=== PATIENT | male | born 1955 | race Caucasian/White ===

== ENCOUNTER 2017-02-08 18:15 | Emergency (ER) | payer OTHER ==
--- NOTE | 2017-02-08 18:26 | EDPHY ---
H & P Time Seen by Provider: 02/08/17 18:16 HPI/ROS: CHIEF COMPLAINT: Altered mental status Limitations: The patient is nonverbal and unable to provide any clinical history. HISTORY OF PRESENT ILLNESS: The patient is a 62 y/o male arriving via EMS after [facility] noticed respiratory distress and altered mental status. The staff at [facility] believe he has been unable to answer basic questions that he normally would be able to answer. He has been known to leave the [facility] and use recreational drugs. They believed this happened today. EMS reports he has intermittent heavy respiratory breathing. The patient cannot remember what he did earlier today. Denies alcohol or drug use today, pain. REVIEW OF SYSTEMS: unable to determine well pt nods to yes/no questioning; answers no to ROS questions. Past Medical/Surgical History: Schizophrenia, anxiety Social History: Homeless or stays at [facility], recreational drug use Physical Exam: General Appearance: Nonverbal, alert, no distress Eyes: Pupils equal and round, no conjunctival pallor or injection ENT, Mouth: Mucous membranes moist Neck: Normal inspection Respiratory: Normal respiratory rate, Rales at bases of lungs Cardiovascular: Regular rate and rhythm Gastrointestinal: Abdomen is soft and non- tender Neurological: A&Ox3, normal motor function, normal sensory exam, cranial nerves intact Skin: Warm and dry, no rash Extremities: Nontender, no pedal edema Psychiatric: Mood and affect normal Constitutional: Initial Vital Signs Temperature (C) 36.7 C 02/08/17 18:24 Heart Rate 88 02/08/17 18:24 Respiratory Rate 15 02/08/17 18:24 Blood Pressure 134/93 H 02/08/17 18:24 O2 Sat (%) 93 02/08/17 18:24 O2 Delivery Mode Room Air Allergies/Adverse Reactions: No Known Allergies Allergy (Unverified 02/08/17 18:21) Home Medications: Medication Instructions Recorded GABAPENTIN 02/08/17 Risperidone 02/08/17 Theragran-M Premier Caplet 02/08/17 Tylenol 02/08/17 traZODone 02/08/17 Medical Decision Making - Diagnostics EKG Interpretation: EKG interpreted by me reveals normal sinus rhythm with rate of 78, normal axis, normal intervals, ST and T segments normal. Interpretation: normal EKG Imaging Results: Imaging Impressions Chest X-Ray 02/08/17 18:23 Impression: Hypoventilation and bibasilar atelectasis. Imaging: Discussed imaging studies w/ call center agent Radiologist, I viewed and interpreted images myself ED Course/Re-evaluation: The patient is a 62 y/o male arriving via EMS from [facility] for altered mental status and respiratory distress. He is currently nonverbal, but can follow commands and nods his head to yes or no questioning. He has a history of recreational drug use, which the staff at [facility] believed he did today. Chest x-ray: Hypoventilation and bibasilar atelectasis. 1924: His nurse reports that the patient is still nonverbal. 1958: Reassessed patient, he is mumbling, but answering some questions. Clearly understands what I am saying. On exam there are no acute findings. He will be discharged back to [facility]. Return precautions discussed; patient is comfortable with this plan. Differential Diagnosis: Altered mental status including but not limited to pneumonia, hypoxia, hypoglycemia, infectious process, electrolyte abnormality, head injury and intoxicants. - Data Points Laboratory Results: Laboratory Results 02/08/17 18:30 02/08/17 18:30 02/08/17 02/08/17 02/08/17 20:50 18:30 18:30 WBC 7.83 10^3/uL 10^3/uL (3.80-9.50) RBC 5.08 10^6/uL 10^6/uL (4.40-6.38) Hgb 16.4 g/dL g/dL (13.7-17.5) Hct 46.9 % % (40.0-51.0) MCV 92.3 fL fL (81.5-99.8) MCH 32.3 pg pg (27.9-34.1) MCHC 35.0 g/dL g/dL (32.4-36.7) RDW 13.1 % % (11.5-15.2) Plt Count 288 10^3/uL 10^3/uL (150-400) MPV 9.7 fL fL (8.7-11.7) Neut % (Auto) 64.3 % % (39.3-74.2) Lymph % (Auto) 22.6 % % (15.0-45.0) [place] % (Auto) 10.6 % % (4.5-13.0) Eos % (Auto) 1.1 % % (0.6-7.6) Baso % (Auto) 0.9 % % (0.3-1.7) Nucleat RBC Rel Count 0.0 % % (0.0-0.2) Absolute Neuts (auto) 5.03 10^3/uL 10^3/uL (1.70-6.50) Absolute Lymphs (auto) 1.77 10^3/uL 10^3/uL (1.00-3.00) Absolute Monos (auto) 0.83 10^3/uL H 10^3/uL (0.30-0.80) Absolute Eos (auto) 0.09 10^3/uL 10^3/uL (0.03-0.40) Absolute Basos (auto) 0.07 10^3/uL 10^3/uL (0.02-0.10) Absolute Nucleated RBC 0.00 10^3/uL 10^3/uL (0-0.01) Immature Gran % 0.5 % % (0.0-1.1) Immature Gran # 0.04 10^3/uL 10^3/uL (0.00-0.10) Sodium 138 mEq/L mEq/L (134-144) Potassium 4.6 mEq/L mEq/L (3.5-5.2) Chloride 100 mEq/L mEq/L (97-110) Carbon Dioxide 27 mEq/l mEq/l (22-31) Anion Gap 11 mEq/L mEq/L (8-16) BUN 11 mg/dL mg/dL (7-23) Creatinine 0.9 mg/dL mg/dL (0.7-1.3) Estimated GFR > 60 Glucose 90 mg/dL mg/dL (70-100) Calcium 10.1 mg/dL mg/dL (8.5-10.4) Urine Opiates Screen Pending Urine Barbiturates Pending Ur Phencyclidine Scrn Pending Ur Amphetamine Screen Pending U Benzodiazepines Scrn Pending Urine Cocaine Screen Pending U Marijuana (THC) Screen Pending Ethyl Alcohol < 10 mg/dL mg/dL (0-10) Medications Given: Discontinued Medications Sodium Chloride (Ns) 1,000 mls @ 0 mls/hr IV ONCE ONE; Wide Open PRN Reason: Protocol Stop: 02/08/17 19:27 Last Admin: 02/08/17 19:28 Dose: 1,000 mls Departure - Departure Disposition: Home, Routine, Self-Care Clinical Impression: Nonverbal Schizophrenia Qualifiers: Schizophrenia type: paranoid schizophrenia Qualified Code(s): F20.0 - Paranoid schizophrenia Condition: Good Instructions: Additional Information, Schizophrenia (ED) Additional Instructions: Follow-up with your primary doctor within 72 hours. Return to the Emergency Department for fever, chest pain, shortness of breath, increasing pain or other worsening of condition. Referrals: [facility],. [Clinic] - As per Instructions Report Scribed for: Sydney Lanier Report Scribed by: Georgina Leonard Date of Report: 02/08/17 Time of Report: 18:18 Physician Review and Approval Statement: 02/08/17 18:18 Portions of this note were transcribed by a medical sales specialist. I personally performed a history, physical exam, medical decision making, and confirmed accuracy of information the transcribed note.
[2017-02-08 18:36] LABS: % IMMATURE GRANULYOCYTES 0.5 % (0.0-1.1); ABSOLUTE IMMATURE GRANULOCYTES 0.04 10^3/uL (0.00-0.10); ADD DIFF? NO; ADD MORPH? NO; ADD SCAN? NO; ATYPICAL LYMPHOCYTE FLAG 10 (0-99); FRAGMENT RBC FLAG 0 (0-99); HEMATOCRIT 46.9 % (40.0-51.0); HEMOGLOBIN 16.4 g/dL (13.7-17.5); LEFT SHIFT FLG 0 (0-99); LIPEMIA HEMOLYSIS FLAG 90 (0-99); MEAN CELL HEMOGLOBIN 32.3 pg (27.9-34.1); MEAN CELL VOLUME 92.3 fL (81.5-99.8); MEAN PLATELET VOLUME 9.7 fL (8.7-11.7); PLATELET CLUMPS FLAG 10 (0-99); PLATELET COUNT 288 10^3/uL (150-400); RED BLOOD CELL COUNT 5.08 10^6/uL (4.40-6.38); RED CELL DISTRIBUTION WIDTH 13.1 % (11.5-15.2)
[2017-02-08 18:53] LABS: ANION GAP 11 mEq/L (8-16); CALCIUM 10.1 mg/dL (8.5-10.4); CARBON DIOXIDE 27 mEq/l (22-31); CHLORIDE 100 mEq/L (97-110); CREATININE 0.9 mg/dL (0.7-1.3); ETHANOL SERUM < 10 mg/dL (0-10); GLOMERULAR FILTRATION RATE > 60; GLUCOSE 90 mg/dL (70-100); POTASSIUM 4.6 mEq/L (3.5-5.2); SODIUM 138 mEq/L (134-144)
[2017-02-08] MEDS ORDERED: NS 1,000 ML IV ONE (19:26)
--- NOTE | 2017-02-08 19:33 | CPEKG ---
Heart Rate: 78 RR Interval: 769 P-R Interval: 204 QRSD Interval: 88 QT Interval: 392 QTC Interval: 447 P [place]: 17 QRS [place]: -11 T Wave [place]: 33 EKG Severity - NORMAL ECG - EKG Impression: SINUS RHYTHM Electronically Signed By: Sydney Lanier 08-Feb-2017 21:15:23
[2017-02-08 20:04] VITALS: O2SAT 96
[2017-02-08 20:55] VITALS: BP 141/83; PULSE 72; RESP 18; TEMP 98.8
== END 2017-02-08 21:45 | disposition home or self-care (01) ==
DX: R41.82 Altered mental status, unspecified (principal); F20.0 Paranoid schizophrenia; F80.9 Developmental disorder of speech and language, unspecified; E86.9 Volume depletion, unspecified
CPT/HCPCS: 80305; G0480

== ENCOUNTER 2017-03-09 15:30 | Emergency (ER) | payer OTHER, MEDICAID ==
--- NOTE | 2017-03-09 15:33 | EDPHY ---
HPI/HX/ROS/PE/MDM Narrative: CHIEF COMPLAINT: Incoherent HPI: The patient is a 62 y/o male arriving via EMS after being found incoherent at the [employer]. He was being treated at [facility] for cellulitis until he was released on February 12, almost a month ago. Today a local business called police to report he has been living in the parking lot. Police made contact but found he was incoherent. He has a history of hepatitis, illicit drug use, schizophrenia, and anxiety. He refuses to answer questions but did tell EMS his name. His vitals and blood sugar levels were checked by EMS and found to be normal. On my exam, patient unable to tell me year. He denies pain. HPI obtained primarily from EMS and past medical records including ED visit 02/08 due to patient's condition. REVIEW OF SYSTEMS: Unable to obtain. PMH: Hepatitis, illicit drug use, schizophrenia, anxiety SOCIAL HISTORY: Former [facility] patient, homeless, recreational drug user PHYSICAL EXAM: General:Patient is alert, in no acute distress. Patient disheveled, both legs covered in dried stool. ENT:Eyes are normal to inspection. ENT inspection normal. Neck: Normal inspection. Full range of motion. Respiratory:No respiratory distress. Breath sounds normal bilaterally. Cardiovascular: Regular rate and rhythm. Strong peripheral pulses. Normal cap refill. Abdomen:The abdomen is nontender to palpation. There are no peritoneal signs. There are normal bowel sounds. Back: Normal to inspection. No tenderness to palpation. Skin: Normal color. No rash. Warm and dry. Extremities: Normal appearance. Full range of motion. Neuro: No focal deficits. Pupils mid-position and reactive bilaterally. ED Course: 1619: I placed patient on a detainer due to his condition. 1701: Patient's blood work is coming back abnormal. He was a difficult draw. I am having labs redrawn to ensure accuracy. 2119: Inpatient psychiatric treatment has been secured. He will be transferred for admission. MDM: This patient presents with AMS and clear grave disability, likely related to substance abuse and schizophrenia. He has no focal exam findings to suggest head trauma or CVA. His labs are unremarkable. His is afebrile. I think he is medically clear and appropriate for psychiatric admission. - Data Points Laboratory Results: Laboratory Results 03/09/17 17:20 03/09/17 17:20 03/09/17 03/09/17 03/09/17 17:35 17:20 17:20 WBC 9.17 10^3/uL 10^3/uL (3.80-9.50) RBC 4.59 10^6/uL 10^6/uL (4.40-6.38) Hgb 15.5 g/dL g/dL (13.7-17.5) Hct 42.9 % % (40.0-51.0) MCV 93.5 fL fL (81.5-99.8) MCH 33.8 pg pg (27.9-34.1) MCHC 36.1 g/dL g/dL (32.4-36.7) RDW 13.3 % % (11.5-15.2) Plt Count 276 10^3/uL 10^3/uL (150-400) MPV 9.4 fL fL (8.7-11.7) Neut % (Auto) 73.3 % % (39.3-74.2) Lymph % (Auto) 18.5 % % (15.0-45.0) [place] % (Auto) 6.2 % % (4.5-13.0) Eos % (Auto) 0.8 % % (0.6-7.6) Baso % (Auto) 0.8 % % (0.3-1.7) Nucleat RBC Rel Count 0.0 % % (0.0-0.2) Absolute Neuts (auto) 6.72 10^3/uL H 10^3/uL (1.70-6.50) Absolute Lymphs (auto) 1.70 10^3/uL 10^3/uL (1.00-3.00) Absolute Monos (auto) 0.57 10^3/uL 10^3/uL (0.30-0.80) Absolute Eos (auto) 0.07 10^3/uL 10^3/uL (0.03-0.40) Absolute Basos (auto) 0.07 10^3/uL 10^3/uL (0.02-0.10) Absolute Nucleated RBC 0.00 10^3/uL 10^3/uL (0-0.01) Immature Gran % 0.4 % % (0.0-1.1) Immature Gran # 0.04 10^3/uL 10^3/uL (0.00-0.10) Sodium 138 mEq/L mEq/L (134-144) Potassium 4.2 mEq/L mEq/L (3.5-5.2) Chloride 104 mEq/L mEq/L (97-110) Carbon Dioxide 25 mEq/l mEq/l (22-31) Anion Gap 9 mEq/L mEq/L (8-16) BUN 7 mg/dL mg/dL (7-23) Creatinine 0.8 mg/dL mg/dL (0.7-1.3) Estimated GFR > 60 Glucose 86 mg/dL mg/dL (70-100) Calcium 8.8 mg/dL mg/dL (8.5-10.4) Urine Opiates Screen NEGATIVE (NEGATIVE) Urine Barbiturates NEGATIVE (NEGATIVE) Ur Phencyclidine Scrn NEGATIVE (NEGATIVE) Ur Amphetamine Screen NEGATIVE (NEGATIVE) U Benzodiazepines Scrn NEGATIVE (NEGATIVE) Urine Cocaine Screen NEGATIVE (NEGATIVE) U Marijuana (THC) Screen NON-NEGATIVE H (NEGATIVE) 03/09/17 03/09/17 03/09/17 17:20 16:15 16:15 WBC REJ RBC CAKE PRESS OPERATOR Hgb CAKE PRESS OPERATOR Hct CAKE PRESS OPERATOR MCV CAKE PRESS OPERATOR MCH CAKE PRESS OPERATOR MCHC CAKE PRESS OPERATOR RDW CAKE PRESS OPERATOR Plt Count CAKE PRESS OPERATOR MPV CAKE PRESS OPERATOR Neut % (Auto) CAKE PRESS OPERATOR Lymph % (Auto) CAKE PRESS OPERATOR [place] % (Auto) CAKE PRESS OPERATOR Eos % (Auto) CAKE PRESS OPERATOR Baso % (Auto) CAKE PRESS OPERATOR Nucleat RBC Rel Count CAKE PRESS OPERATOR Absolute Neuts (auto) CAKE PRESS OPERATOR Absolute Lymphs (auto) CAKE PRESS OPERATOR Absolute Monos (auto) CAKE PRESS OPERATOR Absolute Eos (auto) CAKE PRESS OPERATOR Absolute Basos (auto) CAKE PRESS OPERATOR Absolute Nucleated RBC CAKE PRESS OPERATOR Immature Gran % CAKE PRESS OPERATOR Immature Gran # CAKE PRESS OPERATOR Sodium REJ Potassium CAKE PRESS OPERATOR Chloride CAKE PRESS OPERATOR Carbon Dioxide CAKE PRESS OPERATOR Anion Gap CAKE PRESS OPERATOR BUN CAKE PRESS OPERATOR Creatinine CAKE PRESS OPERATOR Estimated GFR CAKE PRESS OPERATOR Glucose CAKE PRESS OPERATOR Calcium CAKE PRESS OPERATOR Urine Opiates Screen TNP Urine Barbiturates TNP Ur Phencyclidine Scrn TNP Ur Amphetamine Screen TNP U Benzodiazepines Scrn TNP Urine Cocaine Screen TNP U Marijuana (THC) Screen TNP General Time Seen by Provider: 03/09/17 15:31 Initial Vital Signs: Initial Vital Signs Temperature (C) 36.7 C 03/09/17 15:38 Heart Rate 83 03/09/17 15:38 Respiratory Rate 15 03/09/17 15:38 Blood Pressure 131/82 H 03/09/17 15:38 O2 Sat (%) 96 03/09/17 15:38 O2 Delivery Mode Room Air Allergies/Adverse Reactions: No Known Allergies Allergy (Unverified 02/08/17 18:21) Home Medications: Medication Instructions Recorded GABAPENTIN 02/08/17 Risperidone 02/08/17 Theragran-M Premier Caplet 02/08/17 Tylenol 02/08/17 traZODone 02/08/17 Departure - Departure Disposition: Other Psych, Not [place] Clinical Impression: Gravely disabled, Schizophrenia Condition: Fair Referrals: Patient,NotPresent [Unknown] - As per Instructions Report Scribed for: [address] Report Scribed by: Mariann Poe Date of Report: 03/09/17 Time of Report: 15:34 Physician Review and Approval Statement: Portions of this note were transcribed by an ED scribe. I personally performed the history, physical exam, and medical decision making; and confirm the accuracy of the information in the transcribed note.
[2017-03-09 16:24] LABS: ATYPICAL LYMPHOCYTE FLAG 20 (0-99); FRAGMENT RBC FLAG 0 (0-99); LEFT SHIFT FLG 0 (0-99); LIPEMIA HEMOLYSIS FLAG 90 (0-99); PLATELET CLUMPS FLAG 0 (0-99)
--- NOTE | 2017-03-09 16:27 | ASMTCMCOM ---
CM Note CM Note Notes: Ck is a resident of [facility]. Found confused and covered in stool wondering around the shopping [place] the street from [facility]. [facility]. Rebecca at [facility] is looking into it. She can be reached at [phone]. Date Signed: 03/09/2017 04:26 PM Electronically Signed By:Kirsten Dillon RN
--- NOTE | 2017-03-09 17:21 | ASMTCMCOM ---
CM Note CM Note Notes: Update from Rebecca: patient walked away from [facility] one month ago and they considered that an AMA discharge. Therefore, this patient is homeless. Date Signed: 03/09/2017 05:20 PM Electronically Signed By:Kirsten Dillon RN
--- NOTE | 2017-03-09 17:28 | ASMTCMCOM ---
CM Note CM Note Notes: Psych consult with Dr. Hammer for possible avenues for this pt. [facility] contacted . Intake indicated the possibility to accept this pt. Limited medical records. Due to the pt's limited ability to respond to questions an 8page TLC evaluation was not possible. ED MD reported pt will be admitted for medical treatment. Please Fax records for acceptance to [facility] prior to medical release. [phone]. If [facility] is unable to accept the pt. Dr. Hammer indicated that e would help assess other options. DC TBD CM to follow. Date Signed: 03/09/2017 05:27 PM Electronically Signed By:Ramandeep Duke LCSW
[2017-03-09 17:36] LABS: % IMMATURE GRANULYOCYTES 0.4 % (0.0-1.1); ABSOLUTE IMMATURE GRANULOCYTES 0.04 10^3/uL (0.00-0.10); ADD DIFF? NO; ADD MORPH? NO; ADD SCAN? NO; ATYPICAL LYMPHOCYTE FLAG 0 (0-99); FRAGMENT RBC FLAG 0 (0-99); HEMATOCRIT 42.9 % (40.0-51.0); HEMOGLOBIN 15.5 g/dL (13.7-17.5); LEFT SHIFT FLG 0 (0-99); LIPEMIA HEMOLYSIS FLAG 90 (0-99); MEAN CELL HEMOGLOBIN 33.8 pg (27.9-34.1); MEAN CELL HEMOGLOBIN CONCENTR. 36.1 g/dL (32.4-36.7); MEAN CELL VOLUME 93.5 fL (81.5-99.8); MEAN PLATELET VOLUME 9.4 fL (8.7-11.7); PLATELET CLUMPS FLAG 10 (0-99); PLATELET COUNT 276 10^3/uL (150-400); RED BLOOD CELL COUNT 4.59 10^6/uL (4.40-6.38); RED CELL DISTRIBUTION WIDTH 13.3 % (11.5-15.2)
[2017-03-09 17:46] LABS: CALCIUM 8.8 mg/dL (8.5-10.4); CARBON DIOXIDE 25 mEq/l (22-31); CREATININE 0.8 mg/dL (0.7-1.3); GLOMERULAR FILTRATION RATE > 60; GLUCOSE 86 mg/dL (70-100); POTASSIUM 4.2 mEq/L (3.5-5.2); SODIUM 138 mEq/L (134-144)
[2017-03-09 18:28] LABS: ANION GAP 9 mEq/L (8-16); CHLORIDE 104 mEq/L (97-110)
--- NOTE | 2017-03-09 19:07 | CPEKG ---
Heart Rate: 68 RR Interval: 882 P-R Interval: 168 QRSD Interval: 90 QT Interval: 456 QTC Interval: 486 P [place]: 52 QRS [place]: 18 T Wave [place]: -42 EKG Severity - BORDERLINE ECG - EKG Impression: SINUS RHYTHM EKG Impression: BORDERLINE T ABNORMALITIES, INFERIOR LEADS EKG Impression: BORDERLINE PROLONGED QT INTERVAL EKG Impression: No significant change from February 08, 2017, except for axis change. Electronically Signed By: Junior Recio 13-Mar-2017 11:07:06
[2017-03-09 19:27] VITALS: RESP 18; O2SAT 98
[2017-03-09 22:27] VITALS: BP 118/67; PULSE 66; TEMP 97.9
== END 2017-03-09 22:22 ==
LOC: EDUNIT#
DX: F20.9 Schizophrenia, unspecified (principal); F79 Unspecified intellectual disabilities; Z87.891 Personal history of nicotine dependence
CPT/HCPCS: 80305

== ENCOUNTER 2017-04-01 15:04 | Emergency (ER) | payer OTHER, MEDICAID ==
[~2017-04-01 15:04] MED LIST: AZITHROMYCIN 250 MG TAB PO SCH
[2017-04-01 15:16] VITALS: TEMP 97.7
--- NOTE | 2017-04-01 15:37 | EDPHY ---
H & P Stated Complaint: SOB, cough HPI/ROS: HPI CHIEF COMPLAINT: Shortness of breath, productive cough, bilateral foot pain HISTORY OF PRESENT ILLNESS: Patient is a very pleasant 62-year-old homeless gentleman history of hepatitis, illicit drug use, schizophrenia and tobacco abuse, denies any underlying lung or cardiac disease he presents to the emergency room by EMS for multitude of complaints but is main complaint is shortness of breath with a productive cough with white sputum. He denies blood. He denies chest pain. Denies fever. He states he has been short of breath for the past 3 days and continues to smoke. He reports that he has been wheezing. Additionally he reports that his feet both hurt him. Of note when he arrived by ambulance he has feet that her wet with skin sloughing. There is no gangrene. There is no tenderness or crepitus on exam. His vital signs are stable. He denies chest pain. Denies fever. Denies headache or neck pain. Main complaint bilateral feet pain, and cough with productive sputum white in nature. Past Medical History: Illicit drug use, hepatitis, schizophrenia Past Surgical History: No recent surgery but remote surgery of right great toe removal. Social History: Homeless, daily tobacco use, denies illicit drugs or alcohol. Family History: Noncontributory ROS REVIEW OF SYSTEMS: A comprehensive 10 point review of systems is otherwise negative aside from elements mentioned in the history of present illness. Exam Constitutional appears nontoxic, however disheveled, triage nursing summary reviewed, vital signs reviewed, awake/alert. Eyes normal conjunctivae and sclera, EOMI, PERRLA. HENT normal inspection, atraumatic, moist mucus membranes, no epistaxis, neck supple/ no meningismus, no raccoon eyes. Respiratory clear to auscultation bilaterally, normal breath sounds, no respiratory distress, no wheezing. Cardiovascular rate normal, regular rhythm, no murmur, no edema, distal pulses normal. Gastrointestinal soft, non-tender, no rebound, no guarding, normal bowel sounds, no distension, no pulsatile mass. Genitourinary no CVA tenderness. Musculoskeletal no midline vertebral tenderness, full range of motion, no calf swelling, no tenderness of extremities, no meningismus, good pulses, neurovascularly intact. Missing great right toe. Surgically absent. Skin blisters to both bottoms of his feet. No significant redness. No significant swelling. No crepitus. Neurologic awake, alert and oriented x 3, AAOx3, moves all 4 extremities equally, motor intact, sensory intact, CN II-XII intact, normal cerebellar, normal vision, normal speech. Psychiatric normal mood/affect. Heme/Lymph/Immune no lymphadenopathy. Differential Diagnosis: Includes but is not limited to in a particular order COPD exacerbation, pneumonia, CHF, pneumothorax, wet feet, fungal infection, blisters to feet Medical Decision Making: Plan for this patient DuoNeb breathing treatment, EKG , basic blood work, chest x-ray two view to rule pneumonia, and re-evaluate. Re-evaluation: 1618: X-ray reviewed two view by myself. I do not appreciate pneumonia. He does have hyperinflated lungs consistent with most likely underlying emphysema COPD. EKG interpretation by me on record in [employer] system. Impression time of EKG 1600, this is sinus rhythm rate of 76 PVCs present. I do not appreciate acute ischemia. 1620: I did re-evaluate this patient is feeling better after DuoNeb breathing treatment. Does bleed bilateral foot pain I have offered him ibuprofen. 1646: I did re-evaluate this patient this time is resting comfortably has no complaints. His blood sugars noted to be low in the 50s. Will feed him. Ambulate. Chest x-ray reviewed shows no pneumonia. Feeling better after DuoNeb breathing treatment. Will place on azithromycin albuterol outpatient for bronchitis/COPD. Highly recommend the patient that he stop smoking. He is homeless. Will try to provide him a way to get to his residential tonight. Return precautions given. 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, schizophrenia, osteomyelitis, chronic hepatitis, - Social History Smoking Status: Current every day smoker Constitutional: Initial Vital Signs Temperature (C) 36.5 C 04/01/17 15:14 Heart Rate 86 04/01/17 15:14 Respiratory Rate 18 04/01/17 15:14 Blood Pressure 123/78 H 04/01/17 15:14 O2 Sat (%) 96 04/01/17 15:14 O2 Delivery Mode Room Air Allergies/Adverse Reactions: No Known Allergies Allergy (Unverified 02/08/17 18:21) Home Medications: Medication Instructions Recorded GABAPENTIN 02/08/17 Risperidone 02/08/17 Theragran-M Premier Caplet 02/08/17 Tylenol 02/08/17 traZODone 02/08/17 Medical Decision Making - Diagnostics Imaging Results: Imaging Impressions Chest X-Ray 04/01/17 15:40 Impression: Nothing acute identified. Suspect underlying COPD. - Data Points Laboratory Results: Laboratory Results 04/01/17 15:12 04/01/17 15:12 04/01/17 04/01/17 15:12 15:12 WBC 7.01 10^3/uL 10^3/uL (3.80-9.50) RBC 4.92 10^6/uL 10^6/uL (4.40-6.38) Hgb 16.5 g/dL g/dL (13.7-17.5) Hct 45.8 % % (40.0-51.0) MCV 93.1 fL fL (81.5-99.8) MCH 33.5 pg pg (27.9-34.1) MCHC 36.0 g/dL g/dL (32.4-36.7) RDW 13.0 % % (11.5-15.2) Plt Count 362 10^3/uL 10^3/uL (150-400) MPV 9.7 fL fL (8.7-11.7) Neut % (Auto) 68.5 % % (39.3-74.2) Lymph % (Auto) 20.0 % % (15.0-45.0) [place] % (Auto) 9.7 % % (4.5-13.0) Eos % (Auto) 0.7 % % (0.6-7.6) Baso % (Auto) 1.0 % % (0.3-1.7) Nucleat RBC Rel Count 0.0 % % (0.0-0.2) Absolute Neuts (auto) 4.80 10^3/uL 10^3/uL (1.70-6.50) Absolute Lymphs (auto) 1.40 10^3/uL 10^3/uL (1.00-3.00) Absolute Monos (auto) 0.68 10^3/uL 10^3/uL (0.30-0.80) Absolute Eos (auto) 0.05 10^3/uL 10^3/uL (0.03-0.40) Absolute Basos (auto) 0.07 10^3/uL 10^3/uL (0.02-0.10) Absolute Nucleated RBC 0.00 10^3/uL 10^3/uL (0-0.01) Immature Gran % 0.1 % % (0.0-1.1) Immature Gran # 0.01 10^3/uL 10^3/uL (0.00-0.10) Sodium 142 mEq/L mEq/L (134-144) Potassium 3.7 mEq/L mEq/L (3.5-5.2) Chloride 101 mEq/L mEq/L (97-110) Carbon Dioxide 26 mEq/l mEq/l (22-31) Anion Gap 15 mEq/L mEq/L (8-16) BUN 8 mg/dL mg/dL (7-23) Creatinine 0.9 mg/dL mg/dL (0.7-1.3) Estimated GFR > 60 Glucose 52 mg/dL L mg/dL (70-100) Calcium 10.3 mg/dL mg/dL (8.5-10.4) Creatine Kinase 251 IU/L H IU/L (0-224) CK-MB (CK-2) Fraction 3.47 ng/mL H ng/mL (0.00-3.19) CK-MB (CK-2) % 1.4 % % (0.0-4.0) Creatine Kinase Interp NEGATIVE (NEGATIVE) Troponin I < 0.012 ng/mL ng/mL (0.000-0.034) NT-Pro-B Natriuret Pep 78 pg/mL pg/mL (0-125) Medications Given: Discontinued Medications Albuterol/Ipratropium (Duoneb) 3 ml IH EDNOW ONE Stop: 04/01/17 15:42 Last Admin: 04/01/17 16:00 Dose: 3 ml Sodium Chloride (Ns) 500 mls @ 0 mls/hr IV EDNOW ONE; Wide Open PRN Reason: Protocol Stop: 04/01/17 15:41 Last Admin: 04/01/17 16:00 Dose: 500 mls Ibuprofen (Motrin) 800 mg PO EDNOW ONE Stop: 04/01/17 16:21 Last Admin: 04/01/17 16:31 Dose: 800 mg Departure - Departure Disposition: Home, Routine, Self-Care Clinical Impression: Bronchitis Condition: Good Instructions: Acute Bronchitis (ED), COPD (Chronic Obstructive Pulmonary Disease) (ED) Additional Instructions: 1. Please stop smoking. 2. Return emergency room if you have worsening symptoms questions or concerns. 3. Take antibiotic as prescribed and albuterol as needed. Referrals: Patient,NotPresent [Unknown] - As per Instructions
[2017-04-01] MEDS ORDERED: NS 500 ML IV ONE (15:40)
[2017-04-01] MEDS ORDERED: IPRATROPIUM/ALBUTEROL 3 ML DEYVIAL IH ONE (15:41)
[2017-04-01 15:47] LABS: % IMMATURE GRANULYOCYTES 0.1 % (0.0-1.1); ABSOLUTE IMMATURE GRANULOCYTES 0.01 10^3/uL (0.00-0.10); ADD DIFF? NO; ADD MORPH? NO; ADD SCAN? NO; ATYPICAL LYMPHOCYTE FLAG 10 (0-99); FRAGMENT RBC FLAG 0 (0-99); HEMATOCRIT 45.8 % (40.0-51.0); HEMOGLOBIN 16.5 g/dL (13.7-17.5); LEFT SHIFT FLG 0 (0-99); LIPEMIA HEMOLYSIS FLAG 90 (0-99); MEAN CELL HEMOGLOBIN 33.5 pg (27.9-34.1); MEAN CELL VOLUME 93.1 fL (81.5-99.8); MEAN PLATELET VOLUME 9.7 fL (8.7-11.7); PLATELET CLUMPS FLAG 0 (0-99); PLATELET COUNT 362 10^3/uL (150-400); RED BLOOD CELL COUNT 4.92 10^6/uL (4.40-6.38)
[2017-04-01 16:01] LABS: ANION GAP 15 mEq/L (8-16); CALCIUM 10.3 mg/dL (8.5-10.4); CARBON DIOXIDE 26 mEq/l (22-31); CHLORIDE 101 mEq/L (97-110); CREATININE 0.9 mg/dL (0.7-1.3); GLOMERULAR FILTRATION RATE > 60; GLUCOSE 52 mg/dL (70-100); POTASSIUM 3.7 mEq/L (3.5-5.2); SODIUM 142 mEq/L (134-144)
--- NOTE | 2017-04-01 16:02 | CPEKG ---
Heart Rate: 76 RR Interval: 789 P-R Interval: 176 QRSD Interval: 92 QT Interval: 428 QTC Interval: 482 P [place]: 19 QRS [place]: 11 T Wave [place]: 56 EKG Severity - ABNORMAL ECG - EKG Impression: SINUS RHYTHM EKG Impression: MULTIPLE VENTRICULAR PREMATURE COMPLEXES EKG Impression: BORDERLINE PROLONGED QT INTERVAL Electronically Signed By: Meño Batista 01-Apr-2017 23:29:03
[2017-04-01 16:14] LABS: CK-MB INTERPRETATION NEGATIVE (NEGATIVE); TROPONIN I < 0.012 ng/mL (0.000-0.034)
[2017-04-01 16:15] LABS: CREATINE KINASE-MB FRACTION 3.47 ng/mL (0.00-3.19)
[2017-04-01] MEDS ORDERED: IBUPROFEN 800 MG TAB PO ONE (16:20)
[2017-04-01] MEDS ORDERED: AZITHROMYCIN 250 MG TAB PO ONE (16:48)
[2017-04-01] MEDS ORDERED: ALBUTEROL INH PREPACK MDI TAKEHOME ONE (16:48)
[2017-04-01 17:22] VITALS: BP 141/79; PULSE 81; RESP 16; O2SAT 94
== END 2017-04-01 17:24 | disposition home or self-care (01) ==
LOC: EDUNIT#
DX: J20.9 Acute bronchitis, unspecified (principal); E86.9 Volume depletion, unspecified; F17.200 Nicotine dependence, unspecified, uncomplicated

== ENCOUNTER 2017-04-03 15:42 | Inpatient (IN) | payer OTHER, MEDICAID ==
--- NOTE | 2017-04-03 15:41 | EDPHY ---
H & P HPI/ROS: CHIEF COMPLAINT: Lost control of bowels HISTORY OF PRESENT ILLNESS: The patient is a 62 y/o male with a history of schizophrenia arriving via EMS complaining of loss of control of his bowels. This occurred earlier today. He tells me that the police called EMS. Reportedly he was lying in a field. Paramedics noted that he was breathing rapidly. It is their understanding that he was seen in the emergency department a few days ago, diagnosed with reactive airways, and given an inhaler to use. He has not used an inhaler today and he tells me that he is not taking any medications. Although he denies feeling short of breath he is breathing rapidly, through pursed lips. He denies any trauma. He is not having back pain. He does not think that he had diarrhea earlier and he has not had diarrhea recently. He does report some rectal pain. He has not been aware blood in his stool. Patient was re-examined and re-interviewed after I had a chance to review his records and learn more about his psychiatric history. He has a history of schizophrenia and was discharged from this emergency department to [facility] last month. Apparently he was discharged from [facility] recently. The patient tells me that he is not taking any medications. He states that he is hearing voices and that the voices are suggesting that he kill himself. He has a history of previous suicide attempts. He states that his chosen method would be to slit his wrists. Prior medical records reviewed including ED visit with Dr. Batista on 04/01/17. REVIEW OF SYSTEMS: A ten point review of systems was performed and is negative with the exception of the items mentioned in the HPI. 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 Vital signs reviewed. Blood pressure 144/87. Room air pulse ox 96%. No respiratory distress. Disheveled. Eyes: Pupils equal and round, no conjunctival injection, no discharge. Anicteric. ENT, Mouth: Mucous membranes are moist, no oropharyngeal erythema or edema. Poor dentition. Repetitive movements of his lips. Neck: No lymphadenopathy, supple. Respiratory: Lungs are clear to auscultation; no wheezes, rales, or rhonchi. Breathing shallowly, tachypneic. He is breathing through his mouth. Cardiovascular: Regular rate and rhythm; no murmur, rub, or gallop. Gastrointestinal: Abdomen is soft and nontender, no masses or organomegaly, bowel sounds normal. Rectal: No external hemorrhoid. No masses. No fissures. Brown stool on the examining glove. No internal masses appreciated. Patient did complain of rectal pain after the examination was completed. Normal rectal tone. Skin: Warm and dry, no rashes on exposed skin, normal color. Back: Nontender to palpation over the thoracolumbar spine. No CVAT. Extremities: No lower extremity edema, no calf tenderness or swelling. Neurological: Alert and oriented. Moving all four extremities easily and equally. Psychiatric: Flat affect. (Bonita Whatley) Constitutional: Initial Vital Signs Temperature (C) 36.8 C 04/03/17 15:49 Heart Rate 77 04/03/17 15:49 Respiratory Rate 18 04/03/17 15:49 Blood Pressure 144/87 H 04/03/17 15:49 O2 Sat (%) 96 04/03/17 15:49 O2 Delivery Mode Room Air Allergies/Adverse Reactions: No Known Allergies Allergy (Unverified 02/08/17 18:21) Home Medications: Medication Instructions Recorded risperiDONE [Risperdal] 3 mg PO BID 02/08/17 Benztropine Mesylate [Cogentin 0.5 mg PO BID 04/04/17 (RX)] FLUoxetine [Prozac 20 MG (*)] 20 mg PO DAILY 04/04/17 Gabapentin [Neurontin 300 MG (*)] 300 mg PO BID 04/04/17 traZODone [traZODONE 100MG (*)] 100 mg PO HS 04/04/17 Medical Decision Making ED Course/Re-evaluation: 0520AM: No acute events overnight. Patient has been sleeping. Here with schizophrenia off his medications. Previous inpatient psychiatric hospitalization. He is on M1 hold. His mental health evaluation has been completed and seeking placement. Patient signed over at 7:[address] Lance. (Meño Batista) The patient is a 62 y/o male arriving via EMS after he lost control of his bowels for an unknown reason. On exam he has shallow breathing and is tachypneic. Patient re-examined at 4:30 p.m.. He is intermittently breathing shallowly and rapidly. With his being he makes a blowing motion and has repetitive lip movements. These are not classic for tardive dyskinesia. With guidance he is able to control his breathing. On further questioning tells me that he did take Risperdal in the 1980s. 184: Spoke with Case Management. They report that on 03/09/17 he was discharged from the ED to [facility]. On my exam he stated he was suicidal (see HPI). Patient will be placed on an M1 for suicidality. 184: Reassessed patient and discussed plan for mental health evaluation. Patient is comfortable with this plan. 2299: Patient has been cleared for mental health evaluation. Evaluation is in progress. His care will be transferred to Dr. Batista. (Bonita Whatley) Differential Diagnosis: I considered a differential diagnosis that includes but is not limited to suicidality, homicidality, psychosis, auditory hallucinations, depression, arely , and intoxication. (Bonita Whatley) Other Provider: I assumed care of the patient at 7:00 a.m. pending psychiatric disposition. Update at 9:30 a.m.: The patient has been accepted for inpatient psychiatric placement by Dr. Zhou on the inpatient unit at [facility]. I have filled out the EMTALA transfer form. Update at 10:50 a.m.: I am informed the patient is no longer eligible to be admitted to [address] [place] [address]. His placement continues to be pending. Update at 2pm: The patient is transferred to [address] [place] [address] per the previous plan. (Miko Lance) - Data Points Laboratory Results: Laboratory Results 04/03/17 19:00 04/03/17 19:00 Medications Given: Benztropine Mesylate (Cogentin) 0.5 mg PO DAILY NARENDRA Stop: 10/04/17 08:59 Last Admin: 04/07/17 08:21 Dose: 0.5 mg Cholecalciferol (Vitamin D) 1,000 units PO DAILY NARENDRA Stop: 10/04/17 08:59 Last Admin: 04/07/17 08:22 Dose: 1,000 units Lorazepam (Ativan) 0.5 mg PO BID NARENDRA Stop: 10/03/17 11:29 Last Admin: 04/07/17 08:22 Dose: 0.5 mg Mirtazapine (Remeron) 7.5 mg PO HS [facility] Stop: 10/03/17 20:59 Last Admin: 04/06/17 21:19 Dose: 7.5 mg Potassium Chloride (Potassium Chloride Oral Liquid) 20 meq PO DAILY [facility] Stop: 10/03/17 11:14 Last Admin: 04/07/17 08:21 Dose: 20 meq Risperidone (Risperdal) 2 mg PO HS [facility] Stop: 10/01/17 20:59 Last Admin: 04/06/17 21:20 Dose: 2 mg Fluticasone/Salmeterol (Advair) 1 puffs IH BID NARENDRA Stop: 10/02/17 20:59 Last Admin: 04/07/17 08:21 Dose: 1 puffs Tiotropium Simms (Spiriva Handihaler) 18 mcg IH [facility] Stop: 10/02/17 20:59 Last Admin: 04/06/17 21:22 Dose: 2 puffs Vitamin B Complex (Vitamin B12) 100 mcg PO DAILY [facility] Stop: 10/04/17 08:59 Last Admin: 04/07/17 08:21 Dose: 100 mcg Discontinued Medications Azithromycin (Zithromax) 250 mg PO DAILY [facility] PRN Reason: Protocol Stop: 04/07/17 09:01 Last Admin: 04/07/17 08:22 Dose: 250 mg Benztropine Mesylate (Cogentin) 0.5 mg PO BID [facility] Stop: 10/01/17 20:59 Last Admin: 04/06/17 09:21 Dose: 0.5 mg Departure - Departure Disposition: [facility] IP Clinical Impression: Suicidal ideation Condition: Fair Report Scribed for: Bonita Whatley Report Scribed by: Georgina Leonard Date of Report: 04/03/17 Time of Report: 15:41 Physician Review and Approval Statement: 04/03/17 15:40 Portions of this note were transcribed by the medical microbiologist. I, Dr. Bonita Whatley, personally performed the history, physical exam, and medical decision- making; and confirmed the accuracy of the information in the transcribed note. ( Bonita Whatley)
--- NOTE | 2017-04-03 17:20 | ASMTCMCOM ---
CM Note CM Note Notes: Spoke with Ck after giving him a new set of clothes. He requested to go to [place] but there doesn't seem to be a reason. At this time, Ck should be referred to the homeless assisted for a bed tonight if he is discharged. Date Signed: 04/03/2017 05:19 PM Electronically Signed By:Kirsten Dillon RN
--- NOTE | 2017-04-03 17:22 | ASMTCMCOM ---
CM Note CM Note Notes: Spoke with pt.'s mother Elizabeth Moore [phone]. Ms. Moore reported that her daughter lives in [place]. Earlier in the day she was informed that her daughter did not take her medication for six days. After she she found out she called her daughter and told her she would not be able to come home during [place]. Subsequently the pt. took her medication and she became violent and combative. She was brought in on an M1 hold which was placed by Annette Curry. The hold was missing information and determined invalid. [place] is POA for the pt, however [facility] has significant concerns about the level of care. Ms. Moore also indicated that the pt. has a history of substance abuse which she believes "fried her brain" and makes it difficult to find appropriate placement. This CM informed Ms. Moore that her daughter will be evaluated, which may be helpful in exploring additional placement. This CM to follow up with [facility] with possible options. Date Signed: 04/03/2017 05:22 PM Electronically Signed By:Ramandeep Duke LCSW
--- NOTE | 2017-04-03 18:54 | ASMTCMCOM ---
CM Note CM Note Notes: Please disregard Aida Vaughan's, Case Management note 04/03/17. Wrong chart/wrong patient. Date Signed: 04/03/2017 06:54 PM Electronically Signed By:Kirsten Dillon RN
--- NOTE | 2017-04-03 19:08 | ASMTCMCOM ---
CM Note CM Note Notes: Patient will be put onto a M1 hold. He was just in [facility] facility; they may be willing to accept him back. Date Signed: 04/03/2017 07:08 PM Electronically Signed By:Kirsten Dillon RN
[2017-04-03 19:12] LABS: % IMMATURE GRANULYOCYTES 0.3 % (0.0-1.1); ABSOLUTE IMMATURE GRANULOCYTES 0.02 10^3/uL (0.00-0.10); ADD DIFF? NO; ADD MORPH? NO; ADD SCAN? NO; ATYPICAL LYMPHOCYTE FLAG 0 (0-99); FRAGMENT RBC FLAG 0 (0-99); HEMATOCRIT 37.2 % (40.0-51.0); HEMOGLOBIN 13.4 g/dL (13.7-17.5); LEFT SHIFT FLG 0 (0-99); LIPEMIA HEMOLYSIS FLAG 90 (0-99); MEAN CELL HEMOGLOBIN 33.4 pg (27.9-34.1); MEAN CELL VOLUME 92.8 fL (81.5-99.8); MEAN PLATELET VOLUME 9.3 fL (8.7-11.7); PLATELET CLUMPS FLAG 0 (0-99); RED BLOOD CELL COUNT 4.01 10^6/uL (4.40-6.38); RED CELL DISTRIBUTION WIDTH 13.1 % (11.5-15.2)
[2017-04-03 19:27] LABS: PLATELET COUNT 274 10^3/uL (150-400)
[2017-04-03 19:28] LABS: ANION GAP 7 mEq/L (8-16); CALCIUM 8.8 mg/dL (8.5-10.4); CARBON DIOXIDE 26 mEq/l (22-31); CHLORIDE 105 mEq/L (97-110); CREATININE 0.7 mg/dL (0.7-1.3); ETHANOL SERUM < 10 mg/dL (0-10); GLOMERULAR FILTRATION RATE > 60; GLUCOSE 86 mg/dL (70-100); POTASSIUM 3.3 mEq/L (3.5-5.2); SODIUM 138 mEq/L (134-144)
[2017-04-04] MEDS ORDERED: ACETAMINOPHEN 325 MG TAB PO PRN (16:18)
[2017-04-04] MEDS ORDERED: LORazepam 0.5 MG TAB PO PRN (16:18)
[2017-04-04] MEDS ORDERED: OLANZapine DISINTEGR 10 MG TAB PO PRN (16:18)
[2017-04-04] MEDS ORDERED: MAGNESIUM HYDROXIDE 30 ML UDCUP PO PRN (16:18)
[2017-04-04] MEDS ORDERED: NICOTINE POLACRILEX 2 MG GUM B PRN (16:18)
[2017-04-04] MEDS ORDERED: MAG HYDROX/AL HYDROX/SIMETH 30 ML UDCUP PO PRN (16:18)
[2017-04-04] MEDS ORDERED: traZODone 50 MG TAB PO PRN (16:24)
[2017-04-04] MEDS ORDERED: MELATONIN 3 MG TAB PO PRN (16:24)
[2017-04-04] MEDS ORDERED: OLANZapine DISINTEGR 5 MG TAB PO PRN (16:33)
[2017-04-04] MEDS ORDERED: ALBUTEROL 60 PUFFS/8 GM MDI IH PRN (16:41)
[2017-04-04] MEDS: AZITHROMYCIN 250 MG TAB PO SCH (17:05)
[2017-04-04] MEDS: BENZTROPINE MESYLATE 1 MG TAB PO SCH (20:14)
[2017-04-04] MEDS: risperiDONE 2 MG TAB PO SCH (20:15)
[2017-04-05] MEDS: AZITHROMYCIN 250 MG TAB PO SCH (09:36)
[2017-04-05] MEDS: BENZTROPINE MESYLATE 1 MG TAB PO SCH ×2 (09:37→20:18)
--- NOTE | 2017-04-05 13:05 | PDGENHP ---
History and Physical - Chief Complaint Acute auditory hallucinations - History of Present Illness PCP: Unknown Primary Service: Psych Reason for consultation: Shortness of breath HPI: 62 yo M presented to the ED via police w/ c/o fecal incontinence, but experiencing visible tachypnea, symptomatic shortness of breath, and associated auditory hallucinations characterized as voices telling him to kill himself by slitting his wrists. Patient reports that his SOB is slightly alleviated by breathing rapidly through pursed lips. Patient was unclear about the onset of the SOB, but review of records (04/01/[address] Gordon) indicates that his onset was at least prior to that date, as he had presented w/ SOB at that time, diagnosed as likely COPD w/ mild acute exacerbation, treated w/ Abx and Alb. Patient reports he does not have any home Rx, so it is unclear if he attempted to fill a prescription provided by the ED. When the police assisted the patient on the date of this presentation, he was found in a field incontinent of stool, and did not provide much in the way of additional history. He had recently been discharged from [facility]. History Information - Allergies/Home Medication List Allergies/Adverse Reactions: No Known Allergies Allergy (Unverified 02/08/17 18:21) Home Medications: risperiDONE [Risperdal] 3 mg PO BID 02/08/17 [Last Taken Unknown] Benztropine Mesylate [Cogentin (RX)] 0.5 mg PO BID 04/04/17 [Last Taken Unknown] FLUoxetine [Prozac 20 MG (*)] 20 mg PO DAILY 04/04/17 [Last Taken Unknown] Gabapentin [Neurontin 300 MG (*)] 300 mg PO BID 04/04/17 [Last Taken Unknown] traZODone [traZODONE 100MG (*)] 100 mg PO HS 04/04/17 [Last Taken Unknown] I have personally reviewed and updated: family history, medical history, social history, surgical history - Past Medical History Additional medical history: Schizophrenic. Prior Suicide Attempts - Surgical History Reports: no pertinent surgical hx - Family History Additional family history: denies any cardiopulmonary issues in 1st deg relatives - Social History Smoking Status: Current every day smoker Alcohol Use: None Drug Use: Marijuana Additional social history: homeless Review of Systems Review of Systems: ROS: 10pt was reviewed & negative except for what was stated in HPI & below Respiratory: Reports: shortness of breath Gastrointestinal: Reports: other (bowel incontinence) Neurological: Reports: other (auditory hallucinations) Physical Exam Physical Exam: Temp Pulse Resp BP Pulse Ox 36.9 C 60 20 135/67 H 96 04/05/17 06:00 04/05/17 06:00 04/05/17 06:00 04/05/17 06:00 04/05/17 06:00 Constitutional: not in pain, chronically ill appearing, unkempt, No uncomfortable Eyes: PERRL, anicteric sclera, EOMI Ears, Nose, Mouth, Throat: moist mucous membranes, hearing normal, ears appear normal, no oral mucosal ulcers Cardiovascular: regular rate and rhythym, no murmur, rub, or gallop, No edema Respiratory: reduced air movement (on expiration bilaterally throughout), other (visibly tachypneic w/ pursed lip breathing, able to slow voluntarily), No expiratory wheeze, No inspiratory crackles, No bronchial breath sounds Gastrointestinal: normoactive bowel sounds, soft, non-tender abdomen, no palpable masses Skin: other (healed cut villanueva across bilat wrists w/o erythema or wounds) Neurologic: other (AAOx1 (person only)), No weakness, No facial droop Psychiatric: not anxious, flat affect, other (active auditory hallucinations saying they're going to kill him), No agitated Lab Data & Imaging Review 04/03/17 19:00 04/03/17 19:00 WBC 6.70 10^3/uL (3.80-9.50) 04/03/17 19:00 RBC 4.01 10^6/uL (4.40-6.38) L 04/03/17 19:00 Hgb 13.4 g/dL (13.7-17.5) L 04/03/17 19:00 Hct 37.2 % (40.0-51.0) L 04/03/17 19:00 MCV 92.8 fL (81.5-99.8) 04/03/17 19:00 MCH 33.4 pg (27.9-34.1) 04/03/17 19:00 MCHC 36.0 g/dL (32.4-36.7) 04/03/17 19:00 RDW 13.1 % (11.5-15.2) 04/03/17 19:00 Plt Count 274 10^3/uL (150-400) D 04/03/17 19:00 MPV 9.3 fL (8.7-11.7) 04/03/17 19:00 Neut % (Auto) 62.2 % (39.3-74.2) 04/03/17 19:00 Lymph % (Auto) 26.3 % (15.0-45.0) 04/03/17 19:00 Wilcox % (Auto) 8.4 % (4.5-13.0) 04/03/17 19:00 Eos % (Auto) 1.8 % (0.6-7.6) 04/03/17 19:00 Baso % (Auto) 1.0 % (0.3-1.7) 04/03/17 19:00 Nucleat RBC Rel Count 0.0 % (0.0-0.2) 04/03/17 19:00 Absolute Neuts (auto) 4.17 10^3/uL (1.70-6.50) 04/03/17 19:00 Absolute Lymphs (auto) 1.76 10^3/uL (1.00-3.00) 04/03/17 19:00 Absolute Monos (auto) 0.56 10^3/uL (0.30-0.80) 04/03/17 19:00 Absolute Eos (auto) 0.12 10^3/uL (0.03-0.40) 04/03/17 19:00 Absolute Basos (auto) 0.07 10^3/uL (0.02-0.10) 04/03/17 19:00 Absolute Nucleated RBC 0.00 10^3/uL (0-0.01) 04/03/17 19:00 Immature Gran % 0.3 % (0.0-1.1) 04/03/17 19:00 Immature Gran # 0.02 10^3/uL (0.00-0.10) 04/03/17 19:00 Sodium 138 mEq/L (134-144) 04/03/17 19:00 Potassium 3.3 mEq/L (3.5-5.2) L 04/03/17 19:00 Chloride 105 mEq/L (97-110) 04/03/17 19:00 Carbon Dioxide 26 mEq/l (22-31) 04/03/17 19:00 Anion Gap 7 mEq/L (8-16) L 04/03/17 19:00 BUN 6 mg/dL (7-23) L 04/03/17 19:00 Creatinine 0.7 mg/dL (0.7-1.3) 04/03/17 19:00 Estimated GFR > 60 04/03/17 19:00 Glucose 86 mg/dL (70-100) 04/03/17 19:00 Calcium 8.8 mg/dL (8.5-10.4) 04/03/17 19:00 Stool Occult Bld Scrn NEGATIVE (NEGATIVE) 04/03/17 16:30 Urine Opiates Screen NEGATIVE (NEGATIVE) 04/03/17 20:40 Urine Barbiturates NEGATIVE (NEGATIVE) 04/03/17 20:40 Ur Phencyclidine Scrn NEGATIVE (NEGATIVE) 04/03/17 20:40 Ur Amphetamine Screen NEGATIVE (NEGATIVE) 04/03/17 20:40 U Benzodiazepines Scrn NEGATIVE (NEGATIVE) 04/03/17 20:40 Urine Cocaine Screen NEGATIVE (NEGATIVE) 04/03/17 20:40 U Marijuana (THC) Screen NEGATIVE (NEGATIVE) 04/03/17 20:40 Ethyl Alcohol < 10 mg/dL (0-10) 04/03/17 19:00 Visualized and Interpreted Chest x-ray results: Yes Chest X-Ray results: no infiltrate, other (mildly hyperinflated) Assessment & Plan Assessment: 62 yo M p/w acute auditory hallucinations in setting of schizophrenia, requiring inpatient behavioral health stabilization Plan: 1. Schizophrenia w/ active auditory hallucinations. Placed on M1, transferred to inpatient [facility], patient not adherent to medications as outpatient and recent discharge from an inpt facility. - defer mgmt to primary psych team 2. Suspected COPD. Evidenced by shortened exp phase bilaterally, pursed lip breathing, mildly hyperinflated adair on recent CXR w/o infiltrate - suspect that some of patient's pursed lip breathing is a tick, potentially exacerbated by his underlying [facility] health, but it likely originates from a physical sensation which is a result of air trapping and undiagnosed COPD - although it would be ideal for patient to get PFTs prior to initiating Rx (so that FEV1/FVC ratio can be obtained), given that patient seems to have difficulty following up w/ and accessing care outside of facilities it is reasonable to initiate him on the stabilizing Rx he will likely require to avoid COPD exacerbations, particularly as the season for exacerbations progresses - start Advair bid and Spiriva HS, w/ PRN Albuterol - recommend that patient be permitted to take the diskus and inhaler w/ him upon discharge, so that he has med in hand and he will be covered for at least 1 month - he does not currently have e/o an acute exacerbation, so would not recommend empiric steroids/nebs/abx - he will likely continue to demonstrate the pursed lip breathing despite starting the inhalers, as this may be a learned behavior to which he has limited insight (I asked him if he feels like he is breathing rapidly, and he said, "No"), so what should trigger reassessment by a medical provider is whether his breath sounds are wheezy/clunky ("bronchial") on expiration on physical exam (which they were not on Dr. Gordon's 04/01/17 exam, prompting him to not tx as acute exacerbation either) - recommend arranging outpatient medical follow-up w/ [facility] for him prior to discharge 3. Tobacco Use Disorder. Currently on NRT, use patch if patient has too little insight to request [facility] will sign-off, please contact [phone] Hinds on weekday if reassessment is required.
--- NOTE | 2017-04-05 14:37 | BAPA ---
[f rep st] ADMISSION PSYCHIATRIC ASSESSMENT DATE OF SERVICE: 04/05/2017 CHIEF COMPLAINT: "I need help." HISTORY OF PRESENT ILLNESS: The patient is a 62-year-old man, disabled, homeless, with a history of schizophrenia. The patient arrived via EMS. He is complaining of loss of control of bowels which occurred earlier on 04/03. According to the ED report, patient reported to the ED physician that the police called EMS after he was found lying in a field. The paramedics noted that he was breathing rapidly. The actual M1 hold which was signed by the physician in the Bonita Cabeen in the ED states "Mr. Hallman has a history of schizophrenia, states he is not taking medication, he reports hearing voices, he tells me that he will kill himself by slitting his wrists." Patient had been seen on 04/01/2017 in the ED and on that occasion he was seen by Meño Batista who said that the patient's chief complaint was shortness of breath, productive cough and bilateral foot pain. Dr. Batista noted that "patient is a very pleasant 62-year-old homeless gentleman with a history of hepatitis, illicit drug use, schizophrenia and tobacco abuse, denies any underlying lung or cardiac disease who presents to the ED by EMS for a multitude of complaints but his main complaint is shortness of breath with a productive cough. He denies blood. He denies chest pain. Denies fever. He states he has been short of breath for the past 3 days and continues to smoke. He reports he has been wheezing. His vital signs are stable. He denied any chest pain. Denies headache or neck pain." He received a chest x-ray in the ED. Dr. Batista said "chest x-ray reviewed shows no pneumonia. Patient is feeling better after DuoNeb breathing treatment. Will place on azithromycin and albuterol outpatient for bronchitis COPD. Highly recommended to the patient that he stop smoking. He is homeless. Will try to provide him a way to get to nursing home tonight. Return precautions given." The patient did not present a psychotic. Did not endorse hearing command or auditory hallucinations. Denied paranoia or visual hallucinations. He did not endorse depression and he did not endorse SI or HI and this was 2 days prior to his presentation on the 04/03/ The diagnostic evaluation by Dr. Batista noted "acute bronchitis, chronic obstructive pulmonary disease, emphysema type." The patient was recommended to complete a course of azithromycin and use the albuterol inhaler as needed. So, when the patient showed up 2 days later in the ED when Bonita Whatley saw him, she stated that "the paramedics noted that he was breathing rapidly. It is their understanding that he was seen in the emergency department a few days ago. Diagnosed with reactive airways and given an inhaler. He has not used the inhaler today and he tells me that he is not taking any medications. Although he denies feeling short of breath, he is breathing rapidly through pursed lips." Dr. Whatley went on to state "patient was reexamined and re- interviewed. After I had a chance to review his records, he has a history of schizophrenia and was discharged from this emergency department to [facility] last month. Apparently he was discharged from [facility] recently. The patient tells me he is not taking any medications. He states he is hearing voices and that the voices are suggesting that he kill himself. He has he has a previous history of suicide attempts. He states his chosen method would be to slit his wrists." That was his presentation on 04/03/2017. The patient had previously been seen in our emergency department on 02/08/2017 by Sydney Lanier and at that time the patient patient's chief complaint was altered mental status. Dr. Lainer noted "the patient is a 62-year-old male, arriving the EMS after [facility] noticed respiratory distress and altered mental status. The staff at [facility] believe he has been unable to answer basic questions that he normally would be able to answer. He has been known to leave the half-way and use recreational drugs. They believe this happened today. EMS reports he has intermittent heavy respiratory breathing. The patient cannot remember what he did earlier today. He denies alcohol or drug use. However, his urine drug screen was positive for marijuana. A chest x-ray on 02/08/2017 showed hypoventilation and bibasilar atelectasis. Dr. Lanier noted "on exam there are no acute findings. He will be discharged back to [facility]. Patient is comfortable with this plan. Supposedly, patient was discharged back to [facility]. He was also given referral to the [facility]. Then the patient's next ER visit was on 03/09/2017 and at that time he was seen by Mirza St who noted that his chief complaint was "incoherence." Dr. St noted "the patient is a 62-year-old man arriving via EMS after being found in coherent at the [employer] [facility]. He was being treated at [facility] for cellulitis until he was released on 02/12. Today, on 03/09/2017, a local business called police to report he has been living in the parking lot. Police made contact and found he was incoherent. He has a history of hepatitis, illicit drug use, schizophrenia, he refuses to answer questions but did tell EMS his named. His vitals and blood sugar levels were checked by EMS and found to be normal. On my exam, the patient was unable to tell me the year. He denies pain and at that time, it was decided the patient should be placed on an M1 hold for grave disability. Dr. St noted "this patient presents with altered mental status and clear grave disability likely related to substance abuse and schizophrenia. He has no focal exam finding to suggest head trauma or CVA. His labs are unremarkable. He is afebrile. I think he is medically cleared and appropriate for psychiatric admission. His urine drug screen at that time was positive for marijuana. He was admitted to [facility] on a mental health hold on 03/09/2017. When he presented to our ED on the 04/03/2017, evaluated in the ED and stated that she was able to collect collateral data from [facility]. Contacted [facility] for collateral information. They noted that the patient was admitted they said "in a catatonic state." Per his discharge note, he responded well to medication. He was advised to continue medications and was [facility]. The ED sales development associate goes on to say "it is unclear how the patient is connected to the [facility]. Patient currently has Medicare and Medicaid insurance. rather than . [facility] reported the patient was discharged on 2016. Patient discharged with the recommendation to take medication and [facility] with the [facility]. When asked about this, the patient is unsure what medication and then he is unable to elaborate on the circumstances of his last hospitalization. The [facility] sales development associate contacted [facility] out of concern about potential medication allergy and what medications the patient was on since the patient is unable to respond. Per [facility] discharge summary, the patient has history of tardive dyskinesia. The patient was on the following medications a [facility]: Cogentin 0.5 mg twice daily, Prozac 20 mg q.a.m. gabapentin 300 mg twice daily, trazodone 100 mg p.o. at bedtime. [facility] noted that the patient was very withdrawn though cooperative. He rarely got out of bed, never violent and failed to groom despite encouragement. According to the [facility] sales development associate, "patient is very withdrawn, current speech slow, forced, brief, and he has a very flat affect. Patient reports many previous suicide attempts but did not elaborate other than saying his method of choice right now would be to cut his wrist." The ED physician reported that took a very long time to conduct the interview and elicit information [facility] sales development associate also had a similar issue patient. Patient was tired and giving simple and very brief answers with pressured speech. He has received treatment most recently from [facility]. Patient reports he took medication for schizophrenia in 1980s and states that he has been in treatment on and off for several decades. Patient does not currently have a psychiatrist. He does not have a therapist. Medicare as, Medicaid is secondary but he is not an open client of [facility] here in [place]. PAST MEDICAL HISTORY: Patient's most recent psychiatric hospitalization was at [facility] from 03/09/2017 to 03/27/2017. See HPI for further details. The [facility] sales development associate was able to review the [facility] discharge note and they stated that the patient arrived in "a catatonic state" and that he was given medications including Cogentin, Prozac, gabapentin and trazodone. It is unclear whether or not he was prescribed any antipsychotic medications. The [facility] sales development associate states that the [facility] notes indicated the patient has a history of tardive dyskinesia. This MD met with the patient at length and he had a very different presentation to what was noted in the medical records from [facility] and also his presentation in the [facility] ED. When this MD met with the patient, he had a flat affect and very poor eye contact. At times, he seemed to be mumbling. He spoke in a very quiet voice but his answers were quite coherent, linear and goal directed. He was very polite when addressing the companion caregiver, Yadira. He called her bianca and he said please and thank you. The patient, even though he has some psychomotor retardation and he has slowed speech, his speech is still spontaneous and there are no signs or symptoms of catatonia. He is eating and drinking. He is walking around the unit. He did his laundry this morning. He has been interacting with the staff. He is somewhat withdrawn and does not participate in group therapy but he is present in the milieu and there is no evidence to suggest that the patient is experiencing catatonia at this time. It may be that the fact that he got 2 mg of Risperdal last night has helped his thought process be more organized and more goal directed which may account for the difference between his presentation on the unit and the way he presented in the ED. There is no evidence that the patient has tardive dyskinesia. He does not have crepitus. He does not have abnormal involuntary muscle movements. His lips do curl in sometimes when he is swallowing and this is primarily due to the fact that the patient is edentulous, so patient says that he has lost all of his teeth for a long time. He said that he had dentures in the past but he has lost them and so he cannot really chew very well and it effects his speech and so that is probably one of the reasons why he does not talk as much and why he does not have as much facial movements because he keeps his lips covered over his gums and also because without teeth it makes it more difficult for him to speak, and so I think those are the unusual oral buccal movements that people are noticing around his mouth. I think it is much more likely that it is accounted for by the fact that he does not have any teeth than that he has tardive dyskinesia because he said he was on Risperdal about 20 years ago in the and for at least 10 years and when I ask him ,he does not mention any symptoms of EPS or ever being told that he had TD, so I am somewhat skeptical of the report that at least [facility] has provided that is coming from the discharge summary at [facility]. I think he is neither catatonic nor experiencing tardive dyskinesia for the reasons mentioned above. When this MD met with the patient, he said that he does feel short of breath. He does note that he has COPD and it is emphysema from being a 40+ year smoker. He says that he still continues to smoke. He told the RN this morning that he had no thoughts or plans to kill himself. When MD pressed him on this issue, he said "well, kind of, yes, I do." When MD asked what he meant by that, the patient say, "Well, I have thoughts about it, I don't want to live anymore but I don't know how I would kill myself." When MD told him if he remembered expressing intent or plan when he was in the emergency department. He said "yes, I told them that I wanted to kill myself." But he says he does not remember stating that he would do it by slitting his wrists. When MD asked if he was intending or planning to slit his wrists, he said "no." The patient says that his reason for having suicidal thoughts is "I just don't want to live anymore, I have nothing to live for." When MD asked if this feeling was new, he said no, that he has felt this way "for a really long time." He says that he has had these suicidal thoughts due to feelings of hopelessness, helplessness, and lack of future orientation and feeling that he has "nothing to live for." He says those are thoughts that he has had "for decades" but says that he has not acted on those thoughts recently even though he told the [facility] sales development associate in the emergency department that he had tried to kill himself numerous times. The patient is denying that to me today and he says he has not made a suicide attempt "in a very long time." When this MD met with the patient, he noted that he has been homeless for most of his adult life. He states that he was "a long time ago" but he was . He has lost contact with his children since he lived in [place]. He moved to [place] from [place] but he does not say how long he has been here. He does say that he has lived in [place] for most of the time he has been in [place] but that he has been staying in [place] at least for the last couple of months but cannot give me a good frame of reference in terms of how long he has been in each place, where he stayed. MD and Central Supply Clerk did ask the patient lots of questions about how he financially supports himself and where he has been staying and whether or not he has used homeless shelters or whether he has access to any social media director through [place] [facility]. For the most part, patient denies ever getting social media director even though he is registered for Medicaid [place] Access in [facility], so somebody must have assisted him in doing that at some point. Patient states that he has not stayed in shelters. He does not know where the shelters are and says that he has also not gotten any outpatient medical care because he does not know where the free clinics are located, even though multiple notes from the emergency department indicate that he was given referrals to the [facility]. Central Supply Clerk told him that the Free Clinic was just around the corner from the [facility] location but patient denied that he knew this area or knew where the Free Clinic was. He says that he has never accessed care or receive medications throughout the time that he has been [place] except for when he has been in the hospital. The patient stated that he is on SSDI and that his money gets deposited in a bank in [place] but he says that he lost his debit card, and he has not had any way to access those funds. Although the patient is carrying around peguero in his wallet, he will not say how long he has had the peguero or where he has gotten it from. He did state that he smokes marijuana as often as he can and that he smokes as often as he can, but he cannot remember when the last time he got cigarettes was and he will not say whether not he pays for his cigarettes or gets them for free. He says he smokes "whenever I can get them." Patient is able to answer all of these questions appropriately even though he is vague about some of his answers and does not provide details and he has difficulty with dates. That may be due to the fact that he is just a and hesitant to reveal information but it does not seem like he is not being forthcoming due to a cognitive impairment or due to active psychosis. There are no signs or symptoms of active psychotic disorder. He is not actively hallucinating. He denies hearing any voices at the current time. He denies any visual hallucinations. He is not otherwise exhibiting signs or symptoms of paranoia. He is not reporting ideas of reference. He is not endorsing any bizarre delusions. He does state that he has experienced auditory hallucinations in the past. He says that he has those "some of the time" but says that they come and they go. He says "I am not having them now." He denies history of visual hallucinations. He does say that when he takes Risperdal, the auditory hallucinations "go away," and that may account for why his presentation is so much better today after receiving Risperdal last night than the last 2 times he was in the ED on 04/01 and on 04/03. ALLERGIES: The patient reports no known drug allergies. He denies that he has ever experienced EPS or neuroleptic malignant syndrome or tardive dyskinesia as a result of taking antipsychotic medications. CURRENT MEDICATIONS: Patient is currently not taking any medications. It is noted in the records that the patient was discharged from [facility] on Cogentin 0.5 mg p.o. twice daily, Prozac 20 mg p.o. daily. Gabapentin 300 mg p.o. twice daily, trazodone 100 mg p.o. at bedtime, and his medication reconciliation states that when his medications were reconciled in the ED on a prior visit on 02/08/2017, he was noted to be prescribed risperidone 3 mg p.o. twice daily, although it is unclear where he was getting it or if he was actually taking it. Although he states that he has been on risperidone in the past, he is unable to say how recently and it is not clear whether or not he was prescribed any antipsychotic when he was at [facility], but he has not been taking any medications recently. He was seen in the ED as mentioned in the HPI on 04/01/2017 and diagnosed with reactive airway disease, emphysema and he was prescribed azithromycin. He was given 500 mg in the ED and he was given 4 doses worth of 250 mg tablets but he states that he lost them and did not take them. He was also given a nebulizer treatment and was given a Proventil inhaler to take with him. He acknowledges that he took the Proventil but says that he "lost it" and has not been using it even though he continues to report shortness of breath and wheezing intermittently. PAST MEDICAL HISTORY: According to his 4 recent ED visits, he is noted to have a history of emphysema, COPD, hepatitis, illicit drug use and schizophrenia. He says that he has also been diagnosed with hypertension in the past but he has not seen a primary care physician in a long time according to the patient. He states that he does not have an outpatient provider and has not been to any of the free clinics including the [facility] or [facility] since he has been in [place]. As mentioned previously, he does have these 4 ED visits from 01/2017 until now. He was at [facility] for cellulitis but that is about all the medical history information that we have. SURGICAL HISTORY: Records indicate the patient has had amputation of 2 right toes. One ED report indicates that it was his great toe on the right foot. Another report indicates that he has had 2 toes on the right foot amputated SOCIAL HISTORY: We have a limited amount of social history. As mentioned previously, the patient has been chronically homeless, he says for decades. He says that he was "a long time ago." [facility] evaluation says he has 3 children. Patient says that he has no contact with any family members. His parents are and he says that he has lost touch with his children and he does not know if they are still living in [place] or if they live elsewhere. He moved from [place] to [place] but he cannot say how long he has been here. He also cannot say how long he has lived in [place]. It is at least several months based upon his ER visits, but he said that he spent most of his time in [place] living in [place] which is supported by the fact that he has [place] Medicaid. Most recently when he was picked up by the police on 03/09/2017, in the [facility], people who worked there said that he had been living in the parking garage or the parking lot. It was unclear. It is not clear for how long the patient has been on disability, but he says he does get disability money. He is also not clear where the money goes. He says he thinks he goes to a bank in [place] that he thinks is a [employer] but says that he has not withdrawn money from that account in quite a while, he says because he lost his debit card, but he cannot explain how he has peguero in his wallet then, but says it is not from that bank account. SUBSTANCE USE HISTORY: Patient does admit to using numerous illicit drugs and recreational drugs for a long time. He says that he was a chronic alcoholic. He used to drink "a lot" in the past but says that he does not "touch alcohol anymore" but again cannot say when his last drink was. He says that "it was a long time ago." He does smoke but will not say how many cigarettes or how often. He has been smoking for 40 to 50 years. Again, he does not give too many details about when he started, about when his heaviest use was. He does smoke marijuana. He says that he smokes it "whenever I can" and cannot be any more specific than that. His urine drug screen was positive during 2 ED visits on and 03/09/2017, but on 04/03/2017, that was negative. He denies any other recent drug use. FAMILY HISTORY: He denies any history of mental illness in his family but does not say whether or not other members of his family have had substance use disorders. LABORATORY STUDIES: His admission labs were done in the emergency department on the 04/03. His white cell count was 6.7, hemoglobin was low at 13.4, hematocrit was low at 37.2, his MCV was 92.8. His platelet count was 274. His sodium was 138, potassium was 3.3, his chloride was 105, his BUN was 6, his creatinine was 0.7, glucose was 86, calcium was 8.8. His stool occult blood screen was negative and his urine drug screen was negative for all drugs of abuse. His ethyl alcohol was less than 10. MENTAL STATUS EXAMINATION: Patient is a somewhat malnourished looking, thin, male, with an unkempt shin and looks older than stated age. He is wearing baggy clothes that were given to him on the unit because his clothes were covered in feces. He is wearing a bulky sweatshirt so it is hard to tell how thin or malnourished the patient is. His affect is flat. He says his mood is depressed because he does not feel like he has "anything to live for." His thought process is linear and goal directed. Although his speech is spontaneous , it is slow. He has a very slow greg and very quiet voice. He also has difficulty speaking because he is edentulous. He is alert and oriented x1. He does not know the place, the time or the situation. Although he can remember some of the things from the ED, he does not necessarily connect the statements he made in the ED about suicide to why he would be in a psychiatric hospital. Despite that, he is much more logical and coherent than he presented in the ED. His answers to questions are goal directed, although he gives sort of very brief responses. He denies any active thoughts of suicide. He says that he has no plan or intent to harm himself but he does feel like "I do not want to live anymore," although he says that he is not planning or intending to actually harm himself or anyone else. He denies any current psychotic symptoms. He denies paranoia. There was no evidence of delusions. He is not currently experiencing auditory or visual hallucinations. His intellect appears to be below average based on his patient educational and occupational history. His fund of knowledge and vocabulary, his insight and judgment both appear to be poor. IMPRESSION/DIAGNOSES: 1. Schizophrenia, by history. 2. Cannabis use disorder, severe. 3. Alcohol use disorder, in full sustained remission. 4. Nicotine use disorder, severe. 5. Psychosocial stressors include chronic severe mental illness, unemployed, disabled, chronically homeless, lack of social support, estrangement from grown children, chronic medical conditions, no access to care, lack of primary care, noncompliance with treatment, and not taking medications as prescribed. PLAN: 1. Admit to behavioral health inpatient unit on an M1 hold. 2. Monitor closely for safety and on suicide precautions. 3. Will restart the Risperdal at 2 mg dose p.o. at bedtime. Patient seems to have already had some benefit from taking his dose last night as his presentation is more organized and coherent and logical today than what was reported in the emergency department on Thursday. Will order p.r.n. medications including Ativan and Zyprexa if needed. Will order trazodone for sleep and Cogentin p.o. twice daily for EPS. Have also ordered albuterol all as needed and Zithromax since patient was supposed to complete a course of Zithromax for his acute bronchitis. He will be scheduled for 250 mg x4 doses. He received 500 mg in the ED on 04/01/2017. 4. The patient will be seen by the hospitalist today who will do a more thorough evaluation of his current medical status as well as any followup that he might need. A psychiatrist has ordered liver function tests and a hepatitis panel since the patient has a history of hepatitis by report, also a thyroid panel and then vitamin B12, vitamin D and iron chemistries as well. 5. The patient will engage in individual, group and milieu therapies. We will continue to observe both his mood and his behavior. 6. The patient, MD and Central Supply Clerk spent a great deal of time talking to the patient about accessing appropriate Polymerization Supervisor and how he can be better supported after he leaves the hospital in terms of getting access to appropriate primary medical services as well as appropriate mental health services. The recommendation was that he have a regular doctor that he sees either at the [facility] if he stays in [place] or through [facility] or a similar [facility] in [place] if he decides to return there, and emphasized how important it is to address his health issues, particularly his chronic medical conditions including hepatitis, COPD, bronchitis and possibly hypertension, as well as other illnesses that he might get that exacerbate those chronic conditions like pneumonia or the flu acute bouts of bronchitis, which is what it sounds like he had this week, as well as just the fact that the patient is aging and he is chronically homeless and has numerous just physical complaints from time to time. MD also emphasized the importance of staying on medications for his mental health so that he can think more clearly and make better decisions, when he does need to get help or access services that he is mentally alert and clear enough in his thinking in order to be able to do that. The patient agreed to stay until he gets more stable, until he gets appropriate followup in place where he can get routine outpatient services and to also receive more information about shelters and other options where he can stay so that he is not living on the street or in a parking lot. 7. Estimated length of stay is 3-5 days. /[id number]/MODL MTDD
[2017-04-05] MEDS: FLUTICASONE/SALMETER 250/50MCG DISKUS IH SCH (20:17)
[2017-04-05] MEDS: TIOTROPIUM INHALER 18 MCG/DOSE 5 DOSE/MDI IH SCH (20:17)
[2017-04-05] MEDS: risperiDONE 2 MG TAB PO SCH (20:18)
[2017-04-06] MEDS ORDERED: ALBUTEROL 200 PUFFS/18 GM MDI IH PRN (08:28)
[2017-04-06 08:34] LABS: ALANINE AMINOTRANSFERASE 29 IU/L (21-72); ALKALINE PHOSPHATASE 43 IU/L (38-126); ASPARTATE AMINOTRANSFERASE 15 IU/L (17-59); BILIRUBIN,TOTAL 0.3 mg/dL (0.1-1.4); BILIRUBIN-CONJUGATED 0.1 mg/dL (0.0-0.5); BILIRUBIN-UNCONJUGATED 0.2 mg/dL (0.0-1.1); TOTAL PROTEIN 5.2 g/dL (6.3-8.2)
[2017-04-06 08:43] LABS: % SATURATION 30 % (20-55); TOTAL IRON BINDING CAPACITY 261 ug/dL (260-490)
[2017-04-06 08:53] LABS: VITAMIN D 25-HYDROXY TOTAL 28.1 ng/mL (30.0-100.0)
[2017-04-06] MEDS: BENZTROPINE MESYLATE 1 MG TAB PO SCH (09:21)
[2017-04-06] MEDS: AZITHROMYCIN 250 MG TAB PO SCH (09:21)
[2017-04-06] MEDS: FLUTICASONE/SALMETER 250/50MCG DISKUS IH SCH ×2 (09:37→21:20)
[2017-04-06] MEDS ORDERED: LORazepam 0.5 MG TAB PO PRN (11:14)
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
[2017-04-06] MEDS: POTASSIUM CL 20 MEQ/15 ML UDCUP PO SCH (11:52)
[2017-04-06] MEDS: LORazepam 0.5 MG TAB PO SCH ×2 (11:53→21:20)
[2017-04-06] MEDS: MIRTAZAPINE 15 MG TAB PO SCH (21:19)
[2017-04-06] MEDS: risperiDONE 2 MG TAB PO SCH (21:20)
[2017-04-06] MEDS: TIOTROPIUM INHALER 18 MCG/DOSE 5 DOSE/MDI IH SCH (21:22)
[2017-04-07] MEDS: POTASSIUM CL 20 MEQ/15 ML UDCUP PO SCH (08:21)
[2017-04-07] MEDS: FLUTICASONE/SALMETER 250/50MCG DISKUS IH SCH ×2 (08:21→18:58)
[2017-04-07] MEDS: CYANO/VITAMIN B12 100 MCG TAB PO SCH (08:21)
[2017-04-07] MEDS: LORazepam 0.5 MG TAB PO SCH ×2 (08:22→18:57)
[2017-04-07] MEDS: AZITHROMYCIN 250 MG TAB PO SCH (08:22)
[2017-04-07] MEDS: CHOLECALCIFEROL VIT D3 1,000 UNITS TAB PO SCH (08:22)
[2017-04-07] MEDS ORDERED: BENZTROPINE MESYLATE 1 MG TAB PO SCH (09:00)
[2017-04-07] MEDS ORDERED: BENZTROPINE MESYLATE 1 MG TAB PO PRN (11:32)
--- NOTE | 2017-04-07 11:37 | SOAPPROG ---
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 Patient now on short term certification. Patient is a non-combat [employer] vet on SS disability for Schizophrenia per his report. Patient appears less anxious and less distressed but continues to appear disorganized with AH and depressed mood. Patient has improved ability to eat and improved compliance with inhalers Mild increased tone today. Plan: Continue Risperdal 2mg QHS for Schizophrenia, increase tomorrow if continuing to tolerate, monitor for EPS Change Cogentin 0.5mg PRN Continue Remeron 7.5mg PO QHS for depression Continue Ativan 0.5mg BID for catatonic symptoms Continue Start K 20meEq (Risperdal can lower K+), Vitamin D, Vitamin B12 Monitor PO intake, behavior, ability to care for self, AH, SI Refer to a [facility] for case management support 04/07/17 11:37 Subjective: "A little better, a little hope" Patient reports overall feeling better and less hopeless. Denies suicidal thoughts. Reports feeling depressed and doesn't care if he lives or dies. Reports AH of multiple voices commenting on his actions. Denies command AH. Reports sleeping well but had vivid dreams. Reports he has memory problems but denies any history of alcoholism or any TBIs. Reports he previously had SS benefits going to a [employer] account but lost his ERI[employer] card and doesn't have an ID. Reports he last had stable housing in 2008, renting a room in a house from a stranger. Denies any history of being assaulted. Denies violent thoughts. Reports difficulty emptying his bladder with frequent urination. Denies fevers, chills or sweats. Denies dysuria or change in urine color/smell. Objective: Vital Signs Temp Pulse Resp BP Pulse Ox 36.9 C 71 14 122/60 H 95 04/05/17 06:00 04/07/17 06:00 04/07/17 06:00 04/07/17 06:00 04/07/17 06:00 Staff report patient slept 11 hours. Cooperative with PO medications and inhalers. Attending meals but not groups. Ate breakfast today. Reports depression with SI to staff yesterday. Alert WM with shin. Sitting quietly on room alone staring at floor. Speech RRR with few words. Affect restricted, preoccupied. Mild slowing; AIM of lower face. Increased tone but no cogwheeling. Denies SI but reports not caring if he lives or dies. Denies HI. AH of brief comments. Memory reduced regarding recent events but intact to month, year, hospital. Limited insight. Questionable judgment. - Time Spent With Patient Time Spent With Patient: 30 minutes - Pending Discharge Pending Discharge Within 24 Hours: No Pending Discharge Within 48 Hours: No ICD10 Worksheet Patient Problems: Problems Problem Status Onset Bronchitis Acute COPD (chronic obstructive pulmonary disease) Acute Hepatitis C antibody positive in blood Acute Suicidal ideation Acute Vitamin B12 deficiency Acute Vitamin D deficiency Acute Schizophrenia Acute
[2017-04-07] MEDS: risperiDONE 2 MG TAB PO SCH (18:56)
[2017-04-07] MEDS: MIRTAZAPINE 15 MG TAB PO SCH (18:56)
[2017-04-07] MEDS: TIOTROPIUM INHALER 18 MCG/DOSE 5 DOSE/MDI IH SCH (18:58)
[2017-04-08] MEDS: CYANO/VITAMIN B12 100 MCG TAB PO SCH (09:15)
[2017-04-08] MEDS: FLUTICASONE/SALMETER 250/50MCG DISKUS IH SCH ×2 (09:15→19:21)
[2017-04-08] MEDS: LORazepam 0.5 MG TAB PO SCH ×2 (09:15→19:18)
[2017-04-08] MEDS: CHOLECALCIFEROL VIT D3 1,000 UNITS TAB PO SCH (09:15)
[2017-04-08] MEDS: POTASSIUM CL 20 MEQ/15 ML UDCUP PO SCH (09:15)
--- NOTE | 2017-04-08 12:31 | SOAPPROG ---
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 Patient now on short term certification. Patient is a non-combat [employer] vet on SS disability for Schizophrenia per his report. Patient reportedly received Invega Sustenna injections 3-4 weeks ago while inpatient at [place] [facility]. Patient reports past benefit from Trazodone. Patient appears anxious with continued disorganization, AH, or SI. Plan: Discontinue Risperdal. Start Invega 3mg daily Discontinue Remeron. Start Trazodone 50mg QHS. Discussed risk of priapism When mood/psychotic symptoms improved, recheck cognition with OT evaluation to rule out Neurocognitive Disorder Increase Ativan 1mg BID for catatonic and anxiety symptoms Continue Start K 20meEq (Risperdal can lower K+), Vitamin D, Vitamin B12 Monitor PO intake, behavior, ability to care for self, AH, SI Refer to a [facility] for case management support 04/08/17 12:31 Subjective: "Not good" Reports disrupted sleep and feeling depressed, AH commenting, brief suicidal thoughts but denies plan/intent. Unable to explain past diagnosis or treatment episodes. Denies pain or shortness or breath or chest pain. Unable to explain what psychiatric medications he took previously. Reports he was living in a homeless snf in [facility] in past. Objective: Vital Signs Temp Pulse Resp BP Pulse Ox 36.8 C 96 16 100/63 95 04/08/17 06:00 04/08/17 06:00 04/08/17 06:00 04/08/17 06:00 04/08/17 06:00 Alert WM, disheveled with shin, appears internally preoccupied. Thoughts briefly organized with a poverty of detail/content. Reports AH of multiple comments. Mood 'not good.' Reports SI without plan/intent. Denies paranoia. Insight limited/poor. Judgment impaired. AIM of lower face. Mild hand flapping tremor R hand. No cogwheeling. Staff report patient isolating to room, disorganized last night and refused inhalers. Unable to attend groups due to anxiety and disorganization. - Time Spent With Patient Time Spent With Patient: 20 minutes - Pending Discharge Pending Discharge Within 24 Hours: No Pending Discharge Within 48 Hours: No ICD10 Worksheet Patient Problems: Problems Problem Status Onset Bronchitis Acute COPD (chronic obstructive pulmonary disease) Acute Depressive disorder Acute Hepatitis C antibody positive in blood Acute Suicidal ideation Acute Vitamin B12 deficiency Acute Vitamin D deficiency Acute Schizophrenia Acute
[2017-04-08] MEDS ORDERED: POTASSIUM CL 20 MEQ TAB PO SCH (14:00)
[2017-04-08] MEDS: PALIPERIDONE 3 MG TAB.ER PO SCH (14:52)
[2017-04-08] MEDS: traZODone 50 MG TAB PO SCH (19:18)
[2017-04-08] MEDS: TIOTROPIUM INHALER 18 MCG/DOSE 5 DOSE/MDI IH SCH (19:21)
[2017-04-09] MEDS: PALIPERIDONE 3 MG TAB.ER PO SCH (08:40)
[2017-04-09] MEDS: CYANO/VITAMIN B12 100 MCG TAB PO SCH (08:40)
[2017-04-09] MEDS: LORazepam 0.5 MG TAB PO SCH ×3 (08:40→21:43)
[2017-04-09] MEDS: CHOLECALCIFEROL VIT D3 1,000 UNITS TAB PO SCH (08:40)
[2017-04-09] MEDS: FLUTICASONE/SALMETER 250/50MCG DISKUS IH SCH ×2 (08:41→21:46)
--- NOTE | 2017-04-09 10:42 | SOAPPROG ---
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 Patient now on short term certification. Patient is a non-combat [employer] vet on SS disability for many years for Schizophrenia per his report. Patient reportedly received Invega Sustenna injections 3-4 weeks ago while inpatient at [place]. Patient reports past benefit from Trazodone. Patient appears preoccupied and disorganized with AH, but denies SI. Plan: Increase Invega 6mg daily Continue Trazodone 50mg QHS. When mood/psychotic symptoms improved, recheck cognition with OT evaluation to rule out Neurocognitive Disorder Change Ativan 0.5mg TID for catatonic and anxiety symptoms Continue K 20meEq (Risperdal can lower K+), Vitamin D, Vitamin B12 Monitor PO intake, behavior, ability to care for self, AH, risk of self-harm 04/09/17 10:42 Subjective: "Alright, a little down" Patient is a poor historian and has difficulty explaining symptoms. Reports sleeping well, feeling sad, having AH but unable to describe. Denies SI. Unable to explain where he would go or how he would obtain food or obtain and ID or bank card if discharged. Denies any physical complaints. Objective: Vital Signs Temp Pulse Resp BP Pulse Ox 36.8 C 76 14 86/50 L 89 L 04/09/17 06:00 04/09/17 06:00 04/09/17 06:00 04/09/17 06:00 04/09/17 06:00 Alert thin WM. Appears preoccupied. No cogwheeling or rigidity. Speech RRR few words. Mood 'down' Affect restricted. Thoughts briefly organized. Denies SI or HI. Reports AH, unable to give details. Insight limited, judgment questionable. Staff report patient anxious yesterday and refused inhalers, but cooperative with psychiatric medication and eating most meals. Isolating to room and not attending groups. Needs prompts for hygiene. - Time Spent With Patient Time Spent With Patient: 15 minutes - Pending Discharge Pending Discharge Within 24 Hours: No Pending Discharge Within 48 Hours: No ICD10 Worksheet Patient Problems: Problems Problem Status Onset Bronchitis Acute COPD (chronic obstructive pulmonary disease) Acute Depressive disorder Acute Hepatitis C antibody positive in blood Acute Suicidal ideation Acute Vitamin B12 deficiency Acute Vitamin D deficiency Acute Schizophrenia Acute
[2017-04-09] MEDS: traZODone 50 MG TAB PO SCH ×2 (21:42→21:43)
[2017-04-09] MEDS: TIOTROPIUM INHALER 18 MCG/DOSE 5 DOSE/MDI IH SCH (21:45)
--- NOTE | 2017-04-10 09:25 | SOAPPROG ---
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 Patient now on short term certification. Patient is a non-combat [employer] vet on SS disability for many years for Schizophrenia per his report. Patient reportedly received Invega Sustenna injections in late February, early March while inpatient at [place]. Patient reports past benefit from Trazodone; had limited benefit from Risperdal previously. Patient appears preoccupied and disorganized with AH and SI today; has been anxious and paranoid on unit. Plan: Invega 6mg, increased today Increase Trazodone 100mg QHS. When mood/psychotic symptoms improved, recheck cognition with OT evaluation to rule out Neurocognitive Disorder Continue Ativan 0.5mg TID for catatonic and anxiety symptoms Continue K 20meEq (Risperdal can lower K+), Vitamin D, Vitamin B12 Monitor PO intake, behavior, ability to care for self, AH, risk of self-harm Start ASA 81mg daily for history of PE. Will review with hospitalist. 04/10/17 09:26 Subjective: "Not good" Patient reports feeling hopeless, depressed, and reports suicidal thoughts. Denies plan/intent to harm self on the unit. Reports multiple AH, unable to explain. Denies shortness of breath, chest pain, dizziness, or weakness. Unable to explain where he would obtain food or correction if discharged. Agrees to continue medication. Denies agitation or violent thoughts. Objective: Vital Signs Temp Pulse Resp BP Pulse Ox 36.6 C 73 14 124/58 H 93 04/10/17 06:00 04/10/17 06:00 04/10/17 06:00 04/10/17 06:00 04/10/17 06:00 Alert thin WM. Appears preoccupied. Resting tremor in right hand. Mood 'not good' Reports AH of multiple voices, unable to describe, denies command AH. Reports SI but denies plan. Denies violent thoughts. Denies paranoia. Insight poor. Memory poor. Judgment impaired. Staff report patient isolating to room and anxious. Able to eat partial meals with prompts only. Poor hygiene, needs prompts with ADLS. Reviewed outside records: Brain MRI 05/2015 at [facility] is WNL except mild atrophy. EKG 05/2016 at [facility] showed sinus tachycardia, QTc 441msec; ventricular bigeminy, abnormal R-wave progression 06/2015: treated for pulmonary embolism at [facility] - Time Spent With Patient Time Spent With Patient: 20 minutes - Pending Discharge Pending Discharge Within 24 Hours: No Pending Discharge Within 48 Hours: No ICD10 Worksheet Patient Problems: Problems Problem Status Onset History of pulmonary embolism Acute Toe amputation status Acute Depressive disorder Acute Vitamin B12 deficiency Acute Vitamin D deficiency Acute Bronchitis Acute COPD (chronic obstructive pulmonary disease) Acute Hepatitis C antibody positive in blood Acute Schizophrenia Acute Suicidal ideation Acute
[2017-04-10] MEDS: CYANO/VITAMIN B12 100 MCG TAB PO SCH (09:45)
[2017-04-10] MEDS: CHOLECALCIFEROL VIT D3 1,000 UNITS TAB PO SCH (09:45)
[2017-04-10] MEDS: LORazepam 0.5 MG TAB PO SCH ×3 (09:45→19:39)
[2017-04-10] MEDS: PALIPERIDONE 3 MG TAB.ER PO SCH (09:46)
[2017-04-10] MEDS: ASPIRIN EC 81 MG TAB PO SCH (09:47)
[2017-04-10] MEDS: FLUTICASONE/SALMETER 250/50MCG DISKUS IH SCH ×2 (09:47→20:07)
--- NOTE | 2017-04-10 13:39 | HOSPPROG ---
Hospitalist Progress Note Assessment/Plan: New patient encounter, previously seen by our hospitalist team on admission #Schizophrenia, mgmt per primary #Likely COPD/obstructive lung disease -no formal lung studies -much improved with starting advair BID and spiriva HS. Albuterol PRN -No SOB, can take a deep breath. On RA #hx of P.E., details unclear, -not on chronic AC -Agree with starting low dose Aspirin -No symptoms to suggest acute or symptomatic PE -Likely would have poor compliance with termite exterminator helper AC #Tobacco abuse disorder -on NRT Plan: -Agree with starting aspirin -continue with all other care will sign off again Subjective: No CP or SOB. No cough. Aspirin started by psych team today. Objective: Vital Signs Temp Pulse Resp BP Pulse Ox 36.6 C 73 14 124/58 H 93 04/10/17 06:00 04/10/17 06:00 04/10/17 06:00 04/10/17 06:00 04/10/17 06:00 - Physical Exam Constitutional: chronically ill appearing Eyes: PERRL, EOMI Ears, Nose, Mouth, Throat: moist mucous membranes, hearing normal Cardiovascular: regular rate and rhythym, No edema Respiratory: no respiratory distress, reduced air movement, No clear to auscultation Gastrointestinal: normoactive bowel sounds, soft, non-tender abdomen Skin: warm Neurologic: AAOx3 Psychiatric: interacting appropriately ICD10 Worksheet Patient Problems: Problems Problem Status Onset Bronchitis Acute COPD (chronic obstructive pulmonary disease) Acute Depressive disorder Acute Hepatitis C antibody positive in blood Acute History of pulmonary embolism Acute Suicidal ideation Acute Toe amputation status Acute Vitamin B12 deficiency Acute Vitamin D deficiency Acute Schizophrenia Acute
[2017-04-10] MEDS: traZODone 100 MG TAB PO SCH (19:39)
[2017-04-10] MEDS: TIOTROPIUM INHALER 18 MCG/DOSE 5 DOSE/MDI IH SCH (20:07)
[2017-04-11] MEDS: CYANO/VITAMIN B12 100 MCG TAB PO SCH (09:05)
[2017-04-11] MEDS: FLUTICASONE/SALMETER 250/50MCG DISKUS IH SCH ×2 (09:05→21:46)
[2017-04-11] MEDS: LORazepam 0.5 MG TAB PO SCH ×3 (09:06→21:45)
[2017-04-11] MEDS: ASPIRIN EC 81 MG TAB PO SCH (09:06)
[2017-04-11] MEDS: PALIPERIDONE 3 MG TAB.ER PO SCH (09:06)
[2017-04-11] MEDS: CHOLECALCIFEROL VIT D3 1,000 UNITS TAB PO SCH (09:06)
--- NOTE | 2017-04-11 13:38 | SOAPPROG ---
SOAP Progress Note Assessment/Plan: Assessment: Per Dr. 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 Patient now on short term certification. Patient is a non-combat [employer] vet on SS disability for many years for Schizophrenia per his report. Patient reportedly received Invega Sustenna injections in late February, early March while inpatient at [place]. Patient reports past benefit from Trazodone; had limited benefit from Risperdal previously. Patient appears preoccupied and disorganized with AH and SI today; has been anxious and paranoid on unit. Plan: Invega 6mg, increased today Increase Trazodone 100mg QHS. When mood/psychotic symptoms improved, recheck cognition with OT evaluation to rule out Neurocognitive Disorder Continue Ativan 0.5mg TID for catatonic and anxiety symptoms Continue K 20meEq (Risperdal can lower K+), Vitamin D, Vitamin B12 Monitor PO intake, behavior, ability to care for self, AH, risk of self-harm Start ASA 81mg daily for history of PE. Will review with hospitalist. Plan: 04/11/17 13:32 1. CCM - patient is feeling better and remains stable 2. Patient did not take his Advair or Spiriva yesterday. He also hasn't taken his Albuterol PRN. explained the importance of regular use of these meds to help improve his breathing. He agrees to use these meds routinely. RN also aware to encourage use of Albuterol PRN. 3. Patient report feeling hopeless d/t his chronic homelessness. However, he has done well on Invega Sustenna in past. Subjective: Met with patient, reviewed chart and d/w staff. Patient is sitting in chair in his room. He tends to isolate and avoid peer interactions. He appears to have difficulty breathing, he is puffing air through open mouth. Patient says his SOB is "same" as usual. explained that long-acting steroid inhaler he has been prescribed will help his breathing improve if used regularly. He didn't take it last night and hasn't asked for PRN albuterol. MD encouraged him to let nurse know when he feels SOB, so they can give him his rescue inhaler. He says he will try to remember. MD also spoke to RN and explained patient is unlikely to request inhalers b/c he is used to living with his COPD without treatment. Encouraged RN to suggest rescue inhaler whenever patient appears SOB. May need nebulizer tx if patient is not using inhalers. Objective: Vital Signs Temp Pulse Resp BP Pulse Ox 36.6 C 115 H 16 87/59 L 96 04/11/17 06:00 04/11/17 06:00 04/11/17 06:00 04/11/17 06:00 04/11/17 06:00 MSE: Affect: Constricted Mood: "OK" other times he rates his depression 5/10 TP: Linear, paucity of speech TC: Denies any SI/HI, no AH/VH, no paranoia Insight/Judgment: Poor - Time Spent With Patient Time Spent With Patient: 20" - Pending Discharge Pending Discharge Within 24 Hours: No Pending Discharge Within 48 Hours: No ICD10 Worksheet Patient Problems: Problems Problem Status Onset Bronchitis Acute COPD (chronic obstructive pulmonary disease) Acute Depressive disorder Acute Hepatitis C antibody positive in blood Acute History of pulmonary embolism Acute Suicidal ideation Acute Toe amputation status Acute Vitamin B12 deficiency Acute Vitamin D deficiency Acute Schizophrenia Acute
[2017-04-11] MEDS: traZODone 100 MG TAB PO SCH (21:45)
[2017-04-11] MEDS: TIOTROPIUM INHALER 18 MCG/DOSE 5 DOSE/MDI IH SCH (21:45)
[2017-04-12] MEDS: LORazepam 0.5 MG TAB PO SCH ×3 (09:26→21:02)
[2017-04-12] MEDS: CYANO/VITAMIN B12 100 MCG TAB PO SCH (09:26)
[2017-04-12] MEDS: PALIPERIDONE 3 MG TAB.ER PO SCH (09:26)
[2017-04-12] MEDS: ASPIRIN EC 81 MG TAB PO SCH (09:27)
[2017-04-12] MEDS: CHOLECALCIFEROL VIT D3 1,000 UNITS TAB PO SCH (09:27)
[2017-04-12] MEDS: FLUTICASONE/SALMETER 250/50MCG DISKUS IH SCH ×2 (11:00→21:02)
--- NOTE | 2017-04-12 12:46 | SOAPPROG ---
SOAP Progress Note Assessment/Plan: Assessment: Per Dr. 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 Patient now on short term certification. Patient is a non-combat [employer] vet on [employer] disability for many years for Schizophrenia per his report. Patient reportedly received Invega Sustenna injections in late February, early March [facility] Patient reports past benefit from Trazodone; had limited benefit from Risperdal previously. Patient appears preoccupied and disorganized with AH and SI today; has been anxious and paranoid on unit. Plan: Invega 6mg, increased today Increase Trazodone 100mg QHS. When mood/psychotic symptoms improved, recheck cognition with OT evaluation to rule out Neurocognitive Disorder Continue Ativan 0.5mg TID for catatonic and anxiety symptoms Continue K 20meEq (Risperdal can lower K+), Vitamin D, Vitamin B12 Monitor PO intake, behavior, ability to care for self, AH, risk of self-harm Start ASA 81mg daily for history of PE. Will review with hospitalist. Plan: 04/11/17 13:32 1. CCM - patient is feeling better and remains stable 2. Patient did not take his Advair or Spiriva yesterday. He also hasn't taken his Albuterol PRN. MD explained the importance of regular use of these meds to help improve his breathing. He agrees to use these meds routinely. RN also aware to encourage use of Albuterol PRN. 3. Patient report feeling hopeless d/t his chronic homelessness. However, he has done well on Invega Sustenna in past. 04/12/17 12:40 1. Patient refused his Advair this AM. MD explained to patient that these are meds that are supposed to be taken every day to improve his breathing. Patient thought they were only as needed like his rescue inhaler. MD tried to explain the difference, but patient only partially comprehended. However, he did agree to use Advair and Spiriva daily as intended. 2. Patient still feels like he has nothing to live for, but denies any plans or intent to hurt himself or anyone else. 3. CCM - patient doing well on Invega, will benefit from APPLE Sustenna prior to d /c Subjective: Met with patient, reviewed chart and d/w staff. Patient refused Advair and Spiriva b/c he says, "I didn't need them." After long conversation, was able to get patient to understand that these meds work differently than his rescue inhaler and need to be taken every day to make his breathing better. He agreed to take them as prescribed. Not much change in his presentation. He still has very flat affect, and says he doesn't feel like he has anything to live for. But he says this is the same way he's felt for "a long time" and doesn't intend or plan to hurt himself. He is eating 100% of meals and sleeping > 10 hrs most nights. Objective: Vital Signs Temp Pulse Resp BP Pulse Ox 36.1 C 80 16 109/65 98 04/12/17 06:00 04/12/17 06:00 04/12/17 06:00 04/12/17 06:00 04/12/17 06:00 MSE: Gaunt, wearing same street clothes since admission, "puffing" with short, shallow breaths (pulse ox is 98% on RA). Affect: Flat Mood: "Sad" TP: Linear for purposes of short conversation, but does not fully comprehend COPD tx, so likely has some cognitive impairment (may be low IQ or result of psychotic disorder, unclear) TC: Denies intent or plan to hurt himself or others, no AH/ Insight/Judgment: Poor - Time Spent With Patient Time Spent With Patient: 20" - Pending Discharge Pending Discharge Within 24 Hours: No Pending Discharge Within 48 Hours: No ICD10 Worksheet Patient Problems: Problems Problem Status Onset Bronchitis Acute COPD (chronic obstructive pulmonary disease) Acute Depressive disorder Acute Hepatitis C antibody positive in blood Acute History of pulmonary embolism Acute Suicidal ideation Acute Toe amputation status Acute Vitamin B12 deficiency Acute Vitamin D deficiency Acute Schizophrenia Acute
[2017-04-12] MEDS: traZODone 100 MG TAB PO SCH (21:02)
[2017-04-12] MEDS: TIOTROPIUM INHALER 18 MCG/DOSE 5 DOSE/MDI IH SCH (21:02)
--- NOTE | 2017-04-13 08:13 | SOAPPROG ---
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 History of pulmonary embolism 06/2015, on aspirin Patient admitted on M-1 for acting bizarre and disorganized in the community with poor self care, and command AH to cut wrist. Patient now on short term certification. Patient is a non-combat [employer] vet on [employer] disability for many years for Schizophrenia per his report. Patient reportedly received Invega Sustenna injections in late February, early March while inpatient at [place]. Patient appears improved with better eye contact and reports reduction in anxiety and improvement in mood; has continued low level AH. Patient has been calm and cooperative on unit, eating well, but isolating to room. Plan: Speech/OT evaluation Continue Invega 6mg Ordered Invega Sustenna 156mg IM on 04/15 Continue Trazodone 100mg QHS. Reduce Ativan 0.5mg BID for catatonic and anxiety symptoms Continue K 20meEq (Risperdal can lower K+), Vitamin D, Vitamin B12 Plan discharge 04/[address] [facility] intake so patient can get an assigned case liner ( needs assistance in obtaining ID and bank card) prior to going to a [facility] 04/13/17 08:15 Subjective: "I'm alright" Patient report over weekend sleeping well and has good appetite. Reports feeling less anxious and less sad than previous. Reports continued AH 'can't make it out much.' Denies thoughts to harm self or others. Agrees to continue Invega Sustenna injections. Denies feeling stiff or sedated from medications. Denies feeling out of breath. Objective: Vital Signs Temp Pulse Resp BP Pulse Ox 36.4 C 82 16 129/83 H 96 04/13/17 06:00 04/13/17 06:00 04/13/17 06:00 04/13/17 06:00 04/13/17 06:00 Alert WM disheveled with shin, resting tremor in RUE. Mild AIM of lower face. Fair eye contact. Speech soft few words. Mood 'alright, better' Affect restricted. Thoughts briefly organized with a poverty of detail. Denies SI or HI. Endorses AH, low level, reduced from previous, unable to describe in detail. Denies command AH. Memory intact to month, year, location. Insight limited, judgment appropriate. Staff report over weekend patient calm, eating well, sleeping well, but isolating to room. Refused inhaler on 04/11 but cooperative 04/12 - Time Spent With Patient Time Spent With Patient: 20 minutes - Pending Discharge Pending Discharge Within 24 Hours: No Pending Discharge Within 48 Hours: No ICD10 Worksheet Patient Problems: Problems Problem Status Onset Bronchitis Acute COPD (chronic obstructive pulmonary disease) Acute Depressive disorder Acute Hepatitis C antibody positive in blood Acute History of pulmonary embolism Acute Suicidal ideation Acute Toe amputation status Acute Vitamin B12 deficiency Acute Vitamin D deficiency Acute Schizophrenia Acute
[2017-04-13] MEDS: PALIPERIDONE 3 MG TAB.ER PO SCH (08:29)
[2017-04-13] MEDS: CYANO/VITAMIN B12 100 MCG TAB PO SCH (08:29)
[2017-04-13] MEDS: CHOLECALCIFEROL VIT D3 1,000 UNITS TAB PO SCH (08:29)
[2017-04-13] MEDS: ASPIRIN EC 81 MG TAB PO SCH (08:29)
[2017-04-13] MEDS: FLUTICASONE/SALMETER 250/50MCG DISKUS IH SCH ×2 (08:29→20:57)
[2017-04-13] MEDS: LORazepam 0.5 MG TAB PO SCH ×2 (08:34→20:57)
[2017-04-13] MEDS: traZODone 100 MG TAB PO SCH (20:57)
[2017-04-13] MEDS: TIOTROPIUM INHALER 18 MCG/DOSE 5 DOSE/MDI IH SCH (20:58)
[2017-04-14] MEDS: ASPIRIN EC 81 MG TAB PO SCH (08:20)
[2017-04-14] MEDS: CYANO/VITAMIN B12 100 MCG TAB PO SCH (08:20)
[2017-04-14] MEDS: FLUTICASONE/SALMETER 250/50MCG DISKUS IH SCH ×2 (08:21→21:11)
[2017-04-14] MEDS: CHOLECALCIFEROL VIT D3 1,000 UNITS TAB PO SCH (08:21)
[2017-04-14] MEDS: PALIPERIDONE 3 MG TAB.ER PO SCH (08:21)
[2017-04-14] MEDS: LORazepam 0.5 MG TAB PO SCH ×2 (08:21→21:07)
--- NOTE | 2017-04-14 10:39 | SOAPPROG ---
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 History of pulmonary embolism 06/2015, on aspirin Patient admitted on M-1 for acting bizarre and disorganized in the community with poor self care, catatonic symptoms, and command AH to cut wrist. Patient now on short term certification. Patient is a non-combat [employer] vet on [employer] disability for many years for Schizophrenia per his report. Patient reportedly received Invega Sustenna injections in late February, early March while inpatient at [place]. Patient appears improved with better eye contact and reports reduction in anxiety and improvement in mood and denies SI; has continued low level AH reduced from previous. Patient has been calm and cooperative on unit, eating well, but isolating to room. Plan: Continue Invega 6mg Ordered Invega Sustenna 156mg IM on 04/15 Continue Trazodone 100mg QHS. Reduce Ativan 0.5mg QHS Continue K 20meEq (Risperdal can lower K+), Vitamin D, Vitamin B12 Plan discharge 04/16 to [facility] intake so patient can get an assigned complex case manager ( needs assistance in obtaining ID and bank card) prior to going to a half-way [facility] for medical follow up after discharge 04/14/17 10:42 Subjective: "Alright, took a turn for the better" Patient reports stable mood and feeling less depressed. Denies SI today. Reports reduced anxiety and reduced AH, but some continued AH but unable to describe. Denies command AH. Denies stiffness or feeling excessively sedated by medication. Reports willingness to get Invega Sustenna injection tomorroow, and discharge with staff to [facility] intake appointment 04/16 and then stay in a half-way until a complex case manager can assist him in getting an ID and replacement bank card. Reports willingness to go to [facility] clinic weekly for pillboxes and get follow up Invega injections there as well. Objective: Vital Signs Temp Pulse Resp BP Pulse Ox 36.5 C 88 14 102/65 93 04/14/17 06:00 04/14/17 06:00 04/14/17 06:00 04/14/17 06:00 04/14/17 06:00 Alert WM, shin, cooperative, calm. AIM of LE and lower face. Speech RRR soft voice few words. Mood 'alright' 'turn for the better' Affect restricted. Thoughts briefly organized with poverty of detail/content. Denies SI or HI. Reports brief AH, reduced from previous. Limited insight. Appropriate judgment. Reduced memory of recent events but intact orientation to month, year , hospital, and city. Staff report patient slept well overnight, isolating to room, eating meals, not attending groups; vitals and pulse ox WNL, compliant with medications and inhalers. - Time Spent With Patient Time Spent With Patient: 20 minutes - Pending Discharge Pending Discharge Within 24 Hours: No Pending Discharge Within 48 Hours: Yes Pending Discharge Date: 04/16/17 Pending Discharge Time: 11:00 ICD10 Worksheet Patient Problems: Problems Problem Status Onset Borderline intellectual functioning Acute Bronchitis Acute COPD (chronic obstructive pulmonary disease) Acute Depressive disorder Acute Hepatitis C antibody positive in blood Acute History of pulmonary embolism Acute Mild neurocognitive disorder Acute Suicidal ideation Acute Toe amputation status Acute Vitamin B12 deficiency Acute Vitamin D deficiency Acute Schizophrenia Acute
[2017-04-14] MEDS: traZODone 100 MG TAB PO SCH (21:07)
[2017-04-14] MEDS: TIOTROPIUM INHALER 18 MCG/DOSE 5 DOSE/MDI IH SCH (21:08)
[2017-04-15] MEDS ORDERED: PALIPERIDONE PALMITATE 156 MG/ML SYR IM ONE (08:06)
[2017-04-15] MEDS: CYANO/VITAMIN B12 100 MCG TAB PO SCH (11:39)
[2017-04-15] MEDS: ASPIRIN EC 81 MG TAB PO SCH (11:39)
[2017-04-15] MEDS: CHOLECALCIFEROL VIT D3 1,000 UNITS TAB PO SCH (11:40)
[2017-04-15] MEDS: PALIPERIDONE 3 MG TAB.ER PO SCH (11:40)
--- NOTE | 2017-04-15 11:53 | SOAPPROG ---
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 History of pulmonary embolism 06/2015, on aspirin Patient admitted on M-1 for acting bizarre and disorganized in the community with poor self care, catatonic symptoms, and command AH to cut wrist. Patient now on short term certification. Patient is a non-combat [employer] vet on [employer] disability for many years for Schizophrenia per his report. Patient reportedly received Invega Sustenna injections in February, early March while inpatient at [place]. Patient appears improved with better eye contact and reports reduction in anxiety and improvement in mood and denies SI; has continued low level AH reduced from previous. Patient has been calm and cooperative on unit, eating well, agrees to discharge plan. Plan: Continue Invega 6mg Invega Sustenna 156mg IM today 04/15 Continue Trazodone 100mg QHS. Continue Ativan 0.5mg QHS Continue K 20meEq (Risperdal can lower K+), Vitamin D, Vitamin B12 Discharge in AM with career services representative for intake at [facility] Will order prescriptions for medications to be dispensed weekly from [facility] pharmacy 04/15/17 11:53 Subjective: "A little anxious, better" Patient reports sleeping well and eating breakfast. Denies stiffness or sedation from medication. Reports stable mood and denies feeling hopeless or suicidal. Reports brief AH of 'good things' but unable to give more detail. Agrees with plan to discharge in AM to [facility] for intake and then stay in a correction until director of casework can assist him in obtaining and ID and a bank card to access his Social Security funds. Agrees with plan to get Invega Sustenna injection today. Reports anxiety regarding finding a correction bed but otherwise reports wanting to discharge. Objective: Vital Signs Temp Pulse Resp BP Pulse Ox 36.5 C 85 14 94/56 L 93 04/15/17 06:00 04/15/17 06:00 04/15/17 06:00 04/15/17 06:00 04/15/17 06:00 Alert WM with shin. Speech RRR. Mood 'a little anxious, better' Affect restricted. Ambulatory. Some AIM of lower face and lower extremities. Thoughts briefly organized with limited information. Denies SI. Reports AH, unable to give details. Denies command AH. Denies paranoia. Denies violent thoughts. Memory intact to month, year, hospital, city. Insight fair judgment appropriate. Staff report patient slept 10 hours, eating well, compliant with medications. - Time Spent With Patient Time Spent With Patient: 15 minutes - Pending Discharge Pending Discharge Within 24 Hours: Yes Pending Discharge Date: 04/16/17 Pending Discharge Time: 08:00 ICD10 Worksheet Patient Problems: Problems Problem Status Onset Borderline intellectual functioning Acute Bronchitis Acute COPD (chronic obstructive pulmonary disease) Acute Depressive disorder Acute Hepatitis C antibody positive in blood Acute History of pulmonary embolism Acute Mild neurocognitive disorder Acute Suicidal ideation Acute Toe amputation status Acute Vitamin B12 deficiency Acute Vitamin D deficiency Acute Schizophrenia Acute
[2017-04-15] MEDS: FLUTICASONE/SALMETER 250/50MCG DISKUS IH SCH ×2 (16:21→21:14)
[2017-04-15] MEDS: traZODone 100 MG TAB PO SCH (21:14)
[2017-04-15] MEDS: LORazepam 0.5 MG TAB PO SCH (21:14)
[2017-04-15] MEDS: TIOTROPIUM INHALER 18 MCG/DOSE 5 DOSE/MDI IH SCH (21:14)
[2017-04-16 06:52] VITALS: BP 101/56; PULSE 72; RESP 16; TEMP 97.9; O2SAT 96
[2017-04-16] MEDS: PALIPERIDONE 3 MG TAB.ER PO SCH (07:52)
[2017-04-16] MEDS: FLUTICASONE/SALMETER 250/50MCG DISKUS IH SCH (07:52)
[2017-04-16] MEDS: ASPIRIN EC 81 MG TAB PO SCH (07:53)
[2017-04-16] MEDS: CHOLECALCIFEROL VIT D3 1,000 UNITS TAB PO SCH (07:53)
[2017-04-16] MEDS: CYANO/VITAMIN B12 100 MCG TAB PO SCH (07:53)
--- NOTE | 2017-04-16 10:10 | BDS ---
[f rep st] BEHAVIORAL HEALTH DISCHARGE SUMMARY IDENTIFICATION: This is a 62-year-old single white male who is homeless. He reports he has been on Social Security Disability for schizophrenia for 30 years. He reports he was in the (not in combat, for 2 years in the 1970s), but does not have any benefits through the [facility]. The patient is originally from [place] and has an 8th grade level of education. ADMITTING DIAGNOSIS: Schizophrenia. BRIEF PSYCHIATRIC HISTORY: The patient reports being on Social Security Disability for schizophrenia for about 30 years. Reports numerous psychiatric hospitalizations in [place] and [place] for mental illness. He reportedly was at [facility] in February 2017, diagnosed with schizophrenia , and prescribed Invega Sustenna injections and Prozac. Patient denies any history of suicide attempts or violence toward others. He denies chronic substance abuse disorders and any legal problems. MEDICAL HISTORY: The patient denies any traumatic brain injuries or seizures. He reports chronic obstructive pulmonary disease and bronchitis symptoms, and was treated with inhalers and five days of PO azithromycin during this hospitalization. He also has a history of hepatitis C. He was also found to have borderline hypokalemia as well as borderline low vitamin D and vitamin B12 levels during the current hospitalization. Outside records indicate the patient has a history of pulmonary embolism in June 2015. Patient also has a history of frostbite with toe amputations several years ago. REASON FOR ADMISSION: The patient apparently was found disorganized and partially catatonic in the community. He was not able to care for himself. In the emergency room, he reported command auditory hallucinations telling him to cut his wrist and was disorganized and acting bizarre. He was placed on an M-1 hold for emergency evaluation. INITIAL EXAM: The patient was disheveled with a shin. He had poor eye contact , appeared preoccupied. His speech was soft with few words and limited vocabulary. He had disorganized thought process with a poverty of information. He reported suicidal thoughts to cut his wrists, auditory hallucinations of multiple voices commenting on his actions. He denied any violent thoughts. His memory was reduced. His insight was poor. His judgment was impaired. HOSPITAL COURSE: The patient was initially admitted to the inpatient unit for grave disability on an M1 hold. He was then placed on a short-term certification for grave disability, as the patient had very disorganized thinking, as well as auditory hallucinations and suicidal thoughts. The patient was started on Risperdal and Ativan for schizophrenia with catatonic and disorganized features. The patient was given azithromycin for 5 days for bronchitis. He was restarted on inhalers for COPD. He was seen by the hospitalist for a baseline exam. He was found to have vitamin deficiencies and started on vitamin D and vitamin B12. A blood test showed that he had a hepatitis C antibody. Outside record review indicated the patient had been at [facility] in February and prescribed Invega Sustenna injections and Prozac, and discharged homeless to follow up with the [facility] in [place]. Outside records also indicated the patient had a history of pulmonary embolism and was started on aspirin. The patient did not improve with Risperdal and was later switched to Invega. The patient initially was paranoid, anxious, reporting auditory hallucinations commenting on his actions, as well as suicidal thoughts to cut his wrist. He was isolative to his room. Had poor p.o. intake initially. With the combination of Invega, Ativan, and trazodone, the patient had a marked improvement. He was eating better, better able to come out of his room and ambulate around, and sitting in the milieu, and attending meals with other patients. He reported better sleep and better mood. He reported a reduction in his auditory hallucinations and a remission of his suicidal ideation. The patient appeared to have borderline intellectual functioning with a limited vocabulary. He did report he only went to 8th grade and had a history of learning disabilities prior to that. The patient had a speech therapy evaluation to assess his cognition. They found that he had some mild short- term memory deficits as well as difficulty with math. He did have full orientation to month, year, hospital, city, and state. He also had a normal clock drawing test. He also showed appropriate judgment on the unit as well as with the speech therapist. It is unclear if the patient's short-term memory problems were related to resolving catatonia and psychosis or not, or if this was a very early stage of a neurocognitive disorder. The patients difficulty with math is consistent with Borderline Intellectual Functioning. The patient was cooperative with medications largely. He initially had difficulty using inhalers, but was able to do this later during the hospitalization with assistance and prompts. He was started on potassium for borderline hypokalemia. The patient reported urinary frequency that had developed with age, possibly consistent with benign prostatic hypertrophy. Due to the patient's homelessness and lack of supports, there was concern about discharging him into the community. The patient reported he did not have an ID. He also did not have a bank card at [employer] to access his Social Security funds. Due to these psychosocial stressors, the patient was held on the unit until he could be discharged directly to an intake appointment with [facility], which is the [facility]. There, the patient can have a telephonic nurse case manager assigned to assist him in obtaining an ID and a bank card. The patient was agreeable to go to a homeless [facility] after discharge after attending the [facility] intake and filling his prescriptions. The patient was agreeable to continue Invega Sustenna injections. He received an Invega Sustenna injection of 156 mg IM on April 15. Prior to discharge, the patient was eating meals consistently, able to sit in the milieu with other patients, and was in no acute distress with reported remission of his suicidal thinking. He reported a reduction in his auditory hallucinations and denied having any thoughts to hurt himself or others. He did not require any restraints or seclusion during the hospitalization and was largely calm but isolative on the unit. Patient was warned about the risk of Trazodone causing priapism, hypotension, and bipolar disorder symptoms. He was warned about this risk of Ativan causing worsening confusion and memory problems. He was warned about the risk of Invega causing metabolic syndrome and neuroleptic malignant syndrome along with worsening tardive dyskinesia movements. LABORATORY DATA: On April 03, he had a white blood cell count of 6.7, hemoglobin 13.4, platelet count 274. Sodium 138, potassium 3.3, creatinine 0.7 , glucose 86, calcium 8.8. On April 06, he had an AST 15, ALT 29, alkaline phosphatase 43. B12 236, total vitamin D 28.1. TSH 0.8. Hepatitis C antibody reactive. Urine tox screen on April 03 was negative. Of note, in the past (on April 01) the patient had an EKG that had a heart rate of 76, and QTc interval of 482 msec; showed multiple ventricular premature complexes, but normal sinus rhythm. Of note, in 2016 the patient had a brain MRI at [facility] that was normal except for mild atrophy. CONSULTATIONS: The patient was seen by the hospitalist in consult for baseline physical exam. CONDITION ON DISCHARGE: He is an ambulatory white male in no acute distress. He has a shin. He is somewhat disheveled. He is cooperative and pleasant. He has abnormal involuntary movements of his lower face and right hand and occasional AIM trunk movements. His speech is soft voice with regular rate and rhythm and a low vocabulary. His thoughts are briefly organized with a poverty of information and poverty of detail. He denies any thoughts to hurt himself or others. He denies paranoia. He reports occasional auditory hallucinations, but is unable to describe this in details. He denies any command hallucinations. His memory is intact to major recent events, and he is oriented to month, year, hospital, city, and state, and has a normal clock- drawing test, but overall he has limited detail in describing past events. His insight appears to be fair. His judgment appears to be appropriate. 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 The patient will need to be reassessed by a psychiatrist at [facility] to order this as a continuation after discharge. Aspirin 81 mg by mouth daily, Vitamin D 1000 units by mouth daily, Vitamin B12 100 mcg by mouth daily, Albuterol inhaler 2 puffs q.4 hours p.r.n. shortness of breath, Advair inhaler 1 puff twice a day, Lorazepam 0.5 mg by mouth at bedtime Invega 6 mg by mouth daily, Spiriva inhaler 1 puff at bedtime Trazodone 100 mg by mouth at bedtime. The patient's prescriptions were written for the patient to have medications dispensed weekly in a pill box from [facility]. FOLLOW UP: Patient was given information about followup with [facility] and was walked over to their clinic for an intake appointment this morning by his career and guidance counselor. Patient agreeable to go to the [facility] after discharge. Patient was also given information about [facility] for medical followup. LEGAL STATUS: The patient was admitted on an M1 hold and then placed on short- term certification. This will be terminated at discharge. The patient can get followup mental health treatment on a voluntary basis. /[id number]/MODL MTDD
== END 2017-04-16 08:20 | disposition home or self-care (01) | DRG 885 ==
LOC: EDUNIT# → BBEH 04-04 14:55
PROVIDERS: ADMIT Psychiatry & Neurology Psychiatry
DX: F20.1 Disorganized schizophrenia (principal); F20.2 Catatonic schizophrenia; F32.9 Major depressive disorder, single episode, unspecified; F81.9 Developmental disorder of scholastic skills, unspecified; G24.01 Drug induced subacute dyskinesia; E87.6 Hypokalemia; J44.9 Chronic obstructive pulmonary disease, unspecified; F17.210 Nicotine dependence, cigarettes, uncomplicated; E53.8 Deficiency of other specified B group vitamins; E55.9 Vitamin D deficiency, unspecified; Z59.0 Homelessness
CPT/HCPCS: 80305; 82607-90; 92523-GN; G0472; G0480; G9168-GN-CK; G9170-GN-CK; J2426

== ENCOUNTER 2017-04-18 02:16 | Emergency (ER) | payer OTHER, MEDICAID ==
[2017-04-18 02:22] VITALS: BP 130/87; PULSE 94; RESP 16; TEMP 97.9; O2SAT 97
--- NOTE | 2017-04-18 03:14 | EDPHY ---
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 He has a history depression. He has not been taking his medications. Does not currently have a plan. He states that he feels hopeless. Denies any alcohol or drug use. No recent illness. No fevers or chills. No chest pain or shortness of breath. No nausea or vomiting. ROS: 10 point Review of Systems is negative except as noted in the HPI. PMH: Depression Social History: Positive smoking, no alcohol, no recreational drug use Family History: non-contributory Physical Exam: Gen: Awake, Alert, No Distress HEENT: Nose: no rhinorrhea Eyes: PERRLA, EOMI Mouth: Moist mucosa Neck: Supple, no JVD Chest: nontender, lungs clear to auscultation Heart: S1, S2 normal, no murmur Abd: Soft, non-tender, no guarding Back: no CVA tenderness, no midline tenderness Ext: no edema, non-tender Skin: no rash Neuro: CN II-XII intact, Sensation grossly intact, Strength 5/5 in bilateral upper and lower extremities (Taiwo Pugh) Constitutional: Initial Vital Signs Temperature (C) 36.6 C 04/18/17 02:20 Heart Rate 94 04/18/17 02:20 Respiratory Rate 16 04/18/17 02:20 Blood Pressure 130/87 H 04/18/17 02:20 O2 Sat (%) 97 04/18/17 02:20 O2 Delivery Mode Room Air Allergies/Adverse Reactions: No Known Allergies Allergy (Unverified 04/18/17 02:18) Home Medications: Medication Instructions Recorded Albuterol [Ventolin Hfa Inhaler] 2 puffs IH Q4HRS PRN #1 mdi 04/15/17 Aspirin EC [Aspirin EC 81 mg (*)] 81 mg PO DAILY #28 tab 04/15/17 Cholecalciferol Vit D3 [Vitamin D3 1,000 units PO DAILY #28 tab 04/15/17 (*)] Cyanocobalamin [Vitamin B12 (*)] 100 mcg PO DAILY #28 tab 04/15/17 Fluticasone/Salmeter 250/50Mcg 1 puffs IH BID #1 disk 04/15/17 [Advair 250/50 (*)] LORazepam [Ativan (*)] 0.5 mg PO HS #28 tab 04/15/17 Paliperidone [Invega 3mg ER (*)] 6 mg PO DAILY #28 tab.er 04/15/17 Tiotropium Inhaler [Spiriva 18 mcg IH HS #1 mdi 04/15/17 Handihaler] traZODone [traZODONE 100MG (*)] 100 mg PO HS #28 tab 04/15/17 Medical Decision Making ED Course/Re-evaluation: This patient was turned over to me at change of shift. I just reassessed this patient and he is not suicidal. He would like to be discharged back to the street. He is currently getting dressed. (Giovanni Barnett) - Data Points Laboratory Results: Laboratory Results 04/18/17 03:30 04/18/17 03:30 04/18/17 04/18/17 03:30 03:30 WBC 9.09 10^3/uL 10^3/uL (3.80-9.50) RBC 4.57 10^6/uL 10^6/uL (4.40-6.38) Hgb 15.0 g/dL g/dL (13.7-17.5) Hct 42.5 % % (40.0-51.0) MCV 93.0 fL fL (81.5-99.8) MCH 32.8 pg pg (27.9-34.1) MCHC 35.3 g/dL g/dL (32.4-36.7) RDW 12.8 % % (11.5-15.2) Plt Count 240 10^3/uL 10^3/uL (150-400) MPV 8.9 fL fL (8.7-11.7) Neut % (Auto) 70.5 % % (39.3-74.2) Lymph % (Auto) 18.7 % % (15.0-45.0) [place] % (Auto) 8.9 % % (4.5-13.0) Eos % (Auto) 0.6 % % (0.6-7.6) Baso % (Auto) 1.0 % % (0.3-1.7) Nucleat RBC Rel Count 0.0 % % (0.0-0.2) Absolute Neuts (auto) 6.41 10^3/uL 10^3/uL (1.70-6.50) Absolute Lymphs (auto) 1.70 10^3/uL 10^3/uL (1.00-3.00) Absolute Monos (auto) 0.81 10^3/uL H 10^3/uL (0.30-0.80) Absolute Eos (auto) 0.05 10^3/uL 10^3/uL (0.03-0.40) Absolute Basos (auto) 0.09 10^3/uL 10^3/uL (0.02-0.10) Absolute Nucleated RBC 0.00 10^3/uL 10^3/uL (0-0.01) Immature Gran % 0.3 % % (0.0-1.1) Immature Gran # 0.03 10^3/uL 10^3/uL (0.00-0.10) Sodium 140 mEq/L mEq/L (134-144) Potassium 4.2 mEq/L mEq/L (3.5-5.2) Chloride 101 mEq/L mEq/L (97-110) Carbon Dioxide 27 mEq/l mEq/l (22-31) Anion Gap 12 mEq/L mEq/L (8-16) BUN 14 mg/dL mg/dL (7-23) Creatinine 0.7 mg/dL mg/dL (0.7-1.3) Estimated GFR > 60 Glucose 89 mg/dL mg/dL (70-100) Calcium 9.2 mg/dL mg/dL (8.5-10.4) Ethyl Alcohol < 10 mg/dL mg/dL (0-10) Departure - Departure Disposition: Home, Routine, Self-Care Clinical Impression: Suicidal ideation Condition: Good Instructions: Suicide Prevention for Adults (ED) Referrals: NONE *PRIMARY CARE P,. [Primary Care Provider] - As per Instructions
[2017-04-18 03:35] LABS: % IMMATURE GRANULYOCYTES 0.3 % (0.0-1.1); ABSOLUTE IMMATURE GRANULOCYTES 0.03 10^3/uL (0.00-0.10); ADD DIFF? NO; ADD MORPH? NO; ADD SCAN? NO; ATYPICAL LYMPHOCYTE FLAG 0 (0-99); FRAGMENT RBC FLAG 0 (0-99); HEMATOCRIT 42.5 % (40.0-51.0); LEFT SHIFT FLG 0 (0-99); LIPEMIA HEMOLYSIS FLAG 90 (0-99); MEAN CELL HEMOGLOBIN 32.8 pg (27.9-34.1); MEAN CELL HEMOGLOBIN CONCENTR. 35.3 g/dL (32.4-36.7); MEAN PLATELET VOLUME 8.9 fL (8.7-11.7); PLATELET CLUMPS FLAG 0 (0-99); PLATELET COUNT 240 10^3/uL (150-400); RED BLOOD CELL COUNT 4.57 10^6/uL (4.40-6.38); RED CELL DISTRIBUTION WIDTH 12.8 % (11.5-15.2)
[2017-04-18 03:45] LABS: ANION GAP 12 mEq/L (8-16); CALCIUM 9.2 mg/dL (8.5-10.4); CARBON DIOXIDE 27 mEq/l (22-31); CHLORIDE 101 mEq/L (97-110); CREATININE 0.7 mg/dL (0.7-1.3); ETHANOL SERUM < 10 mg/dL (0-10); GLOMERULAR FILTRATION RATE > 60; GLUCOSE 89 mg/dL (70-100); POTASSIUM 4.2 mEq/L (3.5-5.2); SODIUM 140 mEq/L (134-144)
== END 2017-04-18 07:13 | disposition home or self-care (01) ==
DX: R45.851 Suicidal ideations (principal); F17.200 Nicotine dependence, unspecified, uncomplicated; Z79.82 Long term (current) use of aspirin
CPT/HCPCS: G0480

== ENCOUNTER 2017-04-18 12:36 | Emergency (ER) | payer OTHER, MEDICAID ==
--- NOTE | 2017-04-18 14:28 | EDPHY ---
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, schizophrenia, osteomyelitis, chronic hepatitis, - Social History Smoking Status: Current every day smoker Time Seen by Provider: 04/18/17 14:25 HPI/ROS: HPI: This is a 62-year-old male presents with Chief Complaint: Wanting to slit his wrists and Location: psych Quality: Wanting to slit his wrist and I Duration: 1-3 hours prior to arrival Signs and Symptoms: no auditory and visual command hallucinations, + suicidal ideation with a plan, no homicidal ideation, not paranoid Timing: Acute on chronic Severity: Moderate Context: Patient has a history of schizophrenic, homeless presents with sudden onset this afternoon of wanting to sliced his wrist and cause self-harm. He reports that his life not or with living and he wants to . He denies any alcohol or recreational drug use today. He was discharged from [address] [place] [address] on 04/16 after 12 day stay. He was started on psychiatric medications and stabilized during this time. Upon discharge she was given a prescription but never filled them. Since that time he was in the emergency room yesterday and today. This morning he denies suicidal ideations and requested to be discharged. In the past, he has stayed at [facility] but signed out AMA. [facility] contacted and as he has had labs this morning request breathalyzer and urine drug screen only; no blood needed. 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 Tympanic membranes clear. Oropharynx clear, no exudate and moist pink mucosa. Airway patent. No lymphadenopathy. No meningismus. Cardiovascular: Normal S1/S2, tachycardia, regular rhythm, without murmur rub or gallop. PULMONARY/CHEST: Symmetrical and nontender. Clear to auscultation bilaterally. Good air movement. No accessory muscle usage. ABDOMEN: Soft, nondistended, nontender, no rebound, no guarding, no peritoneal signs, no masses or organomegaly. No CVAT. EXTREMITIES: 2/2 radial pulses, bilateral WRIST: Extension to 70, flexion to 80, radial deviation to 20 degree, ulnar deviation to 30, no scaphoid tenderness, no tenderness over ulnar styloid, no tenderness over radial styloid , no pain with Solitario test, no pain with Phalen test, no pain with Tinel test. strength 5/5, no deformities, no clubbing, no cyanosis or edema. NEUROLOGICAL: no focal neuro deficits. GCS 15. SKIN: Warm and dry, no erythema. no rash. Good capillary refill. PSYCH: Fair eye contact, no flight of ideas, relatively organized thought process, poor insight and judgment, no auditory and visual command hallucinations, + suicidal ideation with a plan, no homicidal ideation, not paranoid ([place]) Constitutional: Initial Vital Signs Temperature (C) 36.6 C 04/18/17 12:42 Heart Rate 119 H 04/18/17 12:42 Respiratory Rate 26 H 04/18/17 12:42 Blood Pressure 107/79 04/18/17 12:42 O2 Sat (%) 95 04/18/17 12:42 O2 Delivery Mode Room Air Allergies/Adverse Reactions: No Known Allergies Allergy (Verified 04/18/17 12:41) Home Medications: Medication Instructions Recorded Albuterol [Ventolin Hfa Inhaler] 2 puffs IH Q4HRS PRN #1 mdi 04/15/17 Aspirin EC [Aspirin EC 81 mg (*)] 81 mg PO DAILY #28 tab 11/29/17 Cholecalciferol Vit D3 [Vitamin D3 1,000 units PO DAILY #28 tab 04/15/17 (*)] Cyanocobalamin [Vitamin B12 (*)] 100 mcg PO DAILY #28 tab 04/15/17 Fluticasone/Salmeter 250/50Mcg 1 puffs IH BID #1 disk 04/15/17 [Advair 250/50 (*)] LORazepam [Ativan (*)] 0.5 mg PO HS #28 tab 04/15/17 Paliperidone [Invega 3mg ER (*)] 6 mg PO DAILY #28 tab.er 04/15/17 Tiotropium Inhaler [Spiriva 18 mcg IH HS #1 mdi 04/15/17 Handihaler] traZODone [traZODONE 100MG (*)] 100 mg PO HS #28 tab 04/15/17 Medical Decision Making ED Course/Re-evaluation: Placed on M1 hold upon arrival due to recurrent emergency room visits, schizophrenia with medication noncompliance, passive suicidal ideations of cutting wrist intent self-harm. Wrist examined and no signs of injury. Patient is cooperative during interview and no interventions required. [facility] does not want us to repeat labs as they were performed this morning. Only request for repeat of urine drug screen. 1345: Medically clear for mental health evaluation. 1810: End of shift. Signed out to Dr. Jefferson pending mental health evaluation and final disposition. This patient was seen under the supervision of my secondary supervising physician. I evaluated care for this patient independently. Patient's presentation, labs/imaging, treatment and plan of care were discussed with secondary supervising physician. (Mckayla Denney) Differential Diagnosis: Differential diagnosis includes but is not limited to psychosis, medication noncompliance, suicidal ideation. (Mckayla Denney) Other Provider: PHYSICIAN DOCUMENTATION: The patient was evaluated and managed by the Physician Quality Assurance Coach and myself. I have reviewed the chart and agree with the findings and plan of care as documented. In addition, I examined the patient myself at 1556. History confirmed as history of schizophrenia with active suicidal ideation. Physical findings as follows: Patient is cooperative, no wrist injury or laceration at this time. At this time patient is placed on a mental health hold by myself in conjunction with psychiatric pmp certified project manager for suicidal ideation. 1936: At this time the patient is no longer acutely suicidal and per mental health evaluators does not appear to be a danger to himself. Recommendation of the mental health pmp certified project manager and Dr. Daniel is to discharge the patient with clinic follow-up; will follow their recommendations. I am the secondary supervising physician. (Chavez Jefferson) - Data Points Laboratory Results: 04/18/17 14:30 Urine Opiates Screen NEGATIVE (NEGATIVE) Urine Barbiturates NEGATIVE (NEGATIVE) Ur Phencyclidine Scrn NEGATIVE (NEGATIVE) Ur Amphetamine Screen NEGATIVE (NEGATIVE) U Benzodiazepines Scrn NEGATIVE (NEGATIVE) Urine Cocaine Screen NEGATIVE (NEGATIVE) U Marijuana (THC) Screen NEGATIVE (NEGATIVE) Departure - Departure Disposition: Home, Routine, Self-Care Clinical Impression: Schizophrenia Qualifiers: Schizophrenia type: unspecified Qualified Code(s): F20.9 - Schizophrenia, unspecified Condition: Good Instructions: Schizophrenia (ED) Referrals: [facility] [Clinic] - As per Instructions
[2017-04-18 20:18] VITALS: BP 120/69; PULSE 99; RESP 18; TEMP 98.4; O2SAT 93
== END 2017-04-18 20:16 | disposition home or self-care (01) ==
DX: F20.9 Schizophrenia, unspecified (principal); F17.200 Nicotine dependence, unspecified, uncomplicated; Z79.82 Long term (current) use of aspirin
CPT/HCPCS: 80305

== ENCOUNTER 2017-04-20 14:14 | Emergency (ER) | payer OTHER, MEDICAID ==
[2017-04-20 14:47] VITALS: PULSE 92; O2SAT 95
--- NOTE | 2017-04-20 15:57 | EDPHY ---
HPI/HX/ROS/PE/MDM Narrative: CHIEF COMPLAINT:Suicidal thoughts HPI: The patient is a 62-year-old male with a history of mental health disorders as well as homelessness. He was seen in the emergency department 2 times on Thursday related to suicidal ideation and was cleared. He returns to the emergency department today stating that he is suicidal. He has not attempted to follow up with mental health resources. When asked what we can do for him here he said "put me in a back room and let me stay here few days." He denies active plan to kill himself. REVIEW OF SYSTEMS: Aside from elements discussed in the HPI, a comprehensive 10-point review of systems was reviewed and is negative. PMH: History of suicidal ideation SOCIAL HISTORY: Homelessness. PHYSICAL EXAM: General:Patient is alert, in no acute distress. ENT:Eyes are normal to inspection. ENT inspection normal. Neck: Normal inspection. Full range of motion. Respiratory:No respiratory distress. Breath sounds normal bilaterally. Cardiovascular: Regular rate and rhythm. Strong peripheral pulses. Normal cap refill. Abdomen:The abdomen is nontender to palpation. There are no peritoneal signs. There are normal bowel sounds. Back: Normal to inspection. No tenderness to palpation. Skin: Normal color. No rash. Warm and dry. Extremities: Normal appearance. Full range of motion. Neuro: Oriented x3. Normal motor function. Normal sensory function. MDM: This patient returns to the emergency department with complaint of suicidal ideation but his chief concern appears to be obtaining housing. He initially asked to be taken back to one of the mental health rooms in the emergency department where he could stay for several days. I explained to him that was inappropriate and suggested that he go to the mental health walk-in clinic. His immediate question was "Can you stay there for few days?" I asked him if indeed his primary concern is finding a place to stay tonight and he stated yes. Given his recent evaluation for the same symptoms, I do not think that he is having active suicidal thoughts nor meets criteria for an M1 hold. The patient will be provided resources and instructed to go immediately to the walk- in clinic. General Initial Vital Signs: Initial Vital Signs Temperature (C) 36.4 C 04/20/17 14:44 Heart Rate 92 04/20/17 14:44 Respiratory Rate 28 H 04/20/17 14:44 Blood Pressure 121/78 H 04/20/17 14:44 O2 Sat (%) 95 04/20/17 14:44 Allergies/Adverse Reactions: No Known Allergies Allergy (Verified 04/20/17 14:44) Home Medications: Medication Instructions Recorded Albuterol [Ventolin Hfa Inhaler] 2 puffs IH Q4HRS PRN #1 mdi 04/15/17 Aspirin EC [Aspirin EC 81 mg (*)] 81 mg PO DAILY #28 tab 04/15/17 Cholecalciferol Vit D3 [Vitamin D3 1,000 units PO DAILY #28 tab 04/15/17 (*)] Cyanocobalamin [Vitamin B12 (*)] 100 mcg PO DAILY #28 tab 04/15/17 Fluticasone/Salmeter 250/50Mcg 1 puffs IH BID #1 disk 04/15/17 [Advair 250/50 (*)] LORazepam [Ativan (*)] 0.5 mg PO HS #28 tab 04/15/17 Paliperidone [Invega 3mg ER (*)] 6 mg PO DAILY #28 tab.er 04/15/17 Tiotropium Inhaler [Spiriva 18 mcg IH HS #1 mdi 04/15/17 Handihaler] traZODone [traZODONE 100MG (*)] 100 mg PO HS #28 tab 04/15/17 Departure - Departure Clinical Impression: Suicidal ideation, Malingering Condition: Good Instructions: Suicide Prevention for Adults (ED) Additional Instructions: Go directly to the mental health clinic for further evaluation. Return to the ED for thoughts of self-harm, racing thoughts or other concerns. Referrals: NONE *PRIMARY CARE P,. [Primary Care Provider] - As per Instructions
[2017-04-20 16:13] VITALS: BP 110/63; RESP 18; TEMP 98.6
--- NOTE | 2017-04-21 21:07 | ASMTCMCOM ---
CM Note CM Note Notes: Patient has been to the ED multiple times in the past week or more. Patient had gone through initial assessment with Arabella Pedro at [facility] on 04/16/17 after being discharged from [facility]. Patient has an appointment tomorrow 04/22/17 at 1:30pm [facility] with Eve Hernandez for further evaluation and management. Patient is aware of this appointment. Patient continues to not follow through with outpatient treatment options and return to the ED. Please refer back to [facility]. Date Signed: 04/21/2017 09:07 PM Electronically Signed By:Dee Hernández RN
== END 2017-04-20 16:24 | disposition home or self-care (01) ==
DX: R45.851 Suicidal ideations (principal); Z76.5 Malingerer [conscious simulation]; Z79.82 Long term (current) use of aspirin